=== PATIENT | female | born 1960 | race Caucasian/White ===

== ENCOUNTER 2017-05-06 19:22 | Inpatient (IN) | payer OTHER ==
[2017-05-06 19:32] VITALS: BMI 31.3
--- NOTE | 2017-05-06 19:40 | HP ---
Admission [facility] Chief Complaint: Patient admitted for rehab Allergies/Adverse Reactions: Allergies Allergy/AdvReac Type Severity Reaction Status Date / Time No Known Allergies Allergy Verified 05/06/17 19:28 History of Present Illness: 57 years old female with history of alcohol and cocaine dependence admitted for rehab. Patient reports detox at [facility] in [place] within the last month. Exam Limitations: No Limitations - Ebola screening Have you traveled outside of the country in the last 21 days: No Have you had contact with anyone from an Ebola affected area: No Have you been sick,other than usual withdrawal symptoms: No Do you have a fever: No - Review of Systems Constitutional: No Symptoms Reported EENT: reports: No Symptoms Reported Respiratory: reports: No Symptoms reported Cardiac: reports: No Symptoms Reported : reports: No Symptoms Reported Musculoskeletal: reports: No Symptoms Reported Neuro: reports: No Symptoms reported Endocrine: reports: No Symptoms Reported Hematology: reports: No Symptoms Reported Psychiatric: reports: Mood/Affect Appropiate, Orientated x3 Other Systems: Reviewed and Negative Patient History - Patient Medical History Hx Anemia: No Hx Asthma: No Hx Chronic Obstructive Pulmonary Disease (COPD): No Hx Cancer: No Hx Cardiac Disorders: No Hx Congestive Heart Failure: No Hx Hypertension: No Hx Hypercholesterolemia: No Hx Pacemaker: No HX Cerebrovascular Accident: No Hx Seizures: No Hx Dementia: No Hx Diabetes: No Hx Gastrointestinal Disorders: No Hx Liver Disease: No Hx Genitourinary Disorders: No Hx Sexually Transmitted Disorders: No Hx Renal Disease (ESRD): No Hx Thyroid Disease: No Hx Human Immunodeficiency Virus (HIV): No (Negative 02/2017) Hx Hepatitis C: Yes (Treated with Timoteo 2015) Hx Depression: Yes Hx Suicide Attempt: No Hx Bipolar Disorder: No Hx Schizophrenia: No - Patient Surgical History Past Surgical History: Yes Hx Neurologic Surgery: No Hx Cataract Extraction: No Hx Cardiac Surgery: No Hx Lung Surgery: Yes Hx Breast Surgery: No Hx Breast Biopsy: No Hx Abdominal Surgery: No Hx Appendectomy: No Hx Cholecystectomy: No Hx Genitourinary Surgery: No Hx Section: No Hx Orthopedic Surgery: No Hx Hysterectomy: No Anesthesia Reaction: No - PPD History Previous Implant?: Yes Documented Results: Negative w/o proof Implanted On Prior [facility] Admission?: No PPD to be Administered?: Yes - Reproductive History Patient is a Female of Child Bearing Age (11 -55 yrs old): Yes Last Menstrual Period: 01/15/14 (menopausal) Patient : No - Smoking Cessation Smoking history: Current some day smoker Have you smoked in the past 12 months: Yes Aproximately how many cigarettes per day: 3 Hx Chewing Tobacco Use: No Initiated information on smoking cessation: Yes 'Breaking Loose' booklet given: 05/06/17 - Substance & Tx. History Hx Alcohol Use: Yes (Beer) Hx Substance Use: Yes (Cocaine) Substance Use Type: Alcohol, Cocaine Hx Substance Use Treatment: Yes ([facility]) - Substances Abused Alcohol Route: Oral Frequency: 1-2 times per week Amount used: 2 12 oz. Age of first use: 19 Date of Last Use: 05/05/17 Cocaine Route: Smoking Frequency: Daily Amount used: 9 bags Age of first use: 25 Date of Last Use: 05/06/17 Family Disease History - Family Disease History Family History: Denies Admission Physical Exam [facility] - Vital Signs Vital Signs: Vital Signs - 24 hr 05/06/17 19:27 Temperature 98.7 F Pulse Rate 82 Respiratory 18 Rate Blood Pressure 143/88 - Physical General Appearance: Yes: No Apparent Distress HEENTM: Yes: EOMI, Normal Voice, JATINDER Respiratory: Yes: Lungs Clear, Normal Breath Sounds, No Respiratory Distress Neck: Yes: Supple Breast: Yes: Breast Exam Deferred Cardiology: Yes: Regular Rhythm, Regular Rate, S1, S2 Abdominal: Yes: Normal Bowel Sounds, Non Tender, Flat, Soft Genitourinary: Yes: Within Normal Limits Back: Yes: Normal Inspection Musculoskeletal: Yes: Within Normal Limits Extremities: Yes: Normal Inspection Neurological: Yes: Fully Oriented, Alert, Normal Response Integumentary: Yes: Warm Lymphatic: Yes: Within Normal Limits - Diagnostic (1) Uncomplicated alcohol dependence Current Visit: Yes Status: Chronic (2) Cocaine dependence, uncomplicated Current Visit: Yes Status: Chronic (3) Nicotine dependence Current Visit: Yes Status: Chronic Cleared for Admission [facility] - Detox or Rehab [facility] Level of Care: Observation Bed Claeared for Rehab Admission: Yes [facility] Breath Alcohol Content Breath Alcohol Content: 0 Urine Pregancy Test - Result Urine Test Results: Negative- NO Line Present Urine Drug Screen - Results Drug Screen Negative: No Urine Drug Screen Results: ELENI-Cocaine Inpatient Rehab Admission - Initial Determination Are CD services needed?: Yes Free of communicable disease: Yes Not in need of hospitalization: Yes - Rehab Admission Criteria Previous failed treatment: Yes Poor recovery environment: Yes Comorbidities: No Lacks judgement: No Patient is meeting Inpatient Rehab admission criteria:: Yes
[2017-05-06] MEDS ORDERED: LOPERAMIDE HCL 2 MG CAPSULE PO PRN (20:40)
[2017-05-06] MEDS ORDERED: MAGNESIUM CITRATE 300 ML BOTTLE PO PRN (20:40)
[2017-05-06] MEDS ORDERED: ACETAMINOPHEN 325 MG TABLET (FP) PO PRN (20:40)
[2017-05-06] MEDS ORDERED: MENTHOL/PHENOL 1 EACH UD MM PRN (20:40)
[2017-05-06] MEDS ORDERED: P-EPHED 60MG/TRIPROLIDI 2.5MG TABLET PO PRN (20:40)
[2017-05-06] MEDS ORDERED: MAG HYDROX/AL HYDROX/SIMETH 30 ML UNIT-DOSE CUP PO PRN (20:40)
[2017-05-06] MEDS ORDERED: MAGNESIUM HYDROX 2400MG/30ML ORAL SUSPENSION 30 ML CUP PO PRN (20:40)
[2017-05-06] MEDS ORDERED: NICOTINE POLACRILEX 2 MG GUM BC PRN (20:40)
[2017-05-06] MEDS ORDERED: guaiFENesin/D-METHORPHAN HB 10 ML UNIT-DOSE CUPS PO PRN (20:40)
[2017-05-06] MEDS ORDERED: TUBERCULIN PPD 5 TU/0.1ML VIAL ID ONE ×2 (21:58→22:55)
[2017-05-06] MEDS: THIAMINE HCL 100 MG TABLET (FP) PO SCH (22:54)
[2017-05-06 23:24] LABS: URINE APPEARANCE SLCLOUDY; URINE BILIRUBIN NEGATIVE (NEGATIVE); URINE BLOOD 2+ (NEGATIVE); URINE COLOR YELLOW; URINE GLUCOSE (UA) NEGATIVE (NEGATIVE); URINE KETONE NEGATIVE (NEGATIVE); URINE NITRITE NEGATIVE (NEGATIVE); URINE PROTEIN NEGATIVE (NEGATIVE); URINE UROBILINOGEN NEGATIVE mg/dL (0.2-1.0)
[2017-05-06 23:31] LABS: URINE MUCUS MANY; URINE RBC 1 /hpf (0-3); URINE WBC 2 /hpf (3-5)
--- NOTE | 2017-05-07 09:31 | HP ---
Psychiatrist Admission - Data Date of interview: 05/07/17 Admission source: [facility] Identifying data: This is the first admission to [address] [place] [address] for this 57 years old AA mother of 4 grown children, resides with ,supported by PA. Medical History: H/O Pneumonia with chest tube about 4 years ago. Psychiatric History: First contact with psychiatrist was about 2 years ago when she addressed depressed mood,anxiety provoked by alcohol.cocaine use,losing job.[facility],placed on lexapro and Trazodone.She stopped to see a psychiatrist and stopped medications about 1 year ago. Physical/Sexual Abuse/Trauma History: denies Vital Signs: Vital Signs - 24 hr 05/06/17 05/06/17 05/07/17 19:27 22:14 00:30 Temperature 98.7 F 98.6 F Pulse Rate 82 76 Respiratory 18 16 18 Rate Blood Pressure 143/88 125/81 05/07/17 05/07/17 03:30 07:24 Temperature 97.8 F Pulse Rate 62 Respiratory 20 18 Rate Blood Pressure 135/84 Allergies/Adverse Reactions: Allergies Allergy/AdvReac Type Severity Reaction Status Date / Time No Known Allergies Allergy Verified 05/06/17 19:28 Date of last physical exam: 05/06/17 Concur with the findings of this exam: Yes - Substance Abuse/Tx History Hx Alcohol Use: Yes (reports drinking since 19 yo,2 12 oz of beer 2-3 times a week) Hx Substance Use: Yes (crack/cocaine since 25 yo,9 bags daily) Substance Use Type: Alcohol, Cocaine Hx Substance Use Treatment: Yes (completed 28 days inpatient 2 y o,longest abstinence 8 years ) Mental Status Exam - Mental Status Exam Alert and Oriented to: Time, Place, Person Cognitive Function: Grossly Intact Patient Appearance: Well Groomed Mood: Sad Affect: Labile Patient Behavior: Cooperative Speech Pattern: Clear Voice Loudness: Normal Thought Process: Goal Oriented Thought Disorder: Not Present Hallucinations: Denies Suicidal Ideation: Denies Homicidal Ideation: Denies Insight/Judgement: Fair Sleep: Fair Appetite: Good Muscle strength/Tone: Normal Gait/Station: Normal Psychiatric Findings - Problem List ([place] 1, 2,3) (1) Nicotine dependence Current Visit: Yes Status: Chronic (2) Alcohol dependence Current Visit: Yes Status: Chronic (3) Cocaine dependence Current Visit: Yes Status: Chronic (4) Substance induced mood disorder Current Visit: Yes Status: Chronic - Initial Treatment Plan Initial Treatment Plan: Restart Lexapro 10 mg po daily.Will monitor progress.
[2017-05-07 09:50] LABS: MCH 33.7 pg (25.7-33.7); MCHC 33.7 g/dl (32.0-36.0); MEAN CELL VOLUME 99.9 fl (80-96); MEAN PLT VOLUME 10.6 fl (7.5-11.1); PLATELET COUNT 175 K/MM3 (134-434); WHITE BLOOD COUNT 7.3 K/mm3 (4.0-10.0)
--- NOTE | 2017-05-07 09:56 | EKG ---
Test Reason : Blood Pressure : / mmHG Vent. Rate : 076 BPM Atrial Rate : 076 BPM P-R Int : 160 ms QRS Dur : 086 ms QT Int : 382 ms P-R-T Axes : 049 007 063 degrees QTc Int : 429 ms NORMAL SINUS RHYTHM NORMAL ECG NO PREVIOUS ECGS AVAILABLE Confirmed by CADEN BAR MD ([id number]) on 05/07/2017 9:55:56 AM Referred By: Confirmed By:CADEN BAR MD
[2017-05-07 10:29] LABS: URINE LEUK ESTERASE Negative (NEGATIVE)
[2017-05-07 10:42] LABS: ALBUMIN 3.6 g/dl (3.4-5.0); ALK PHOS 87 U/L (45-117); ANION GAP 6 (8-16); CALCIUM 8.6 mg/dL (8.5-10.1); CO2 28 mmol/L (21-32); CREATININE 0.9 mg/dL (0.55-1.02); GLUCOSE,RANDOM 87 mg/dL (74-106); SGOT/AST 41 U/L (15-37); SGPT/ALT 59 U/L (12-78)
[2017-05-07] MEDS: NICOTINE 14 MG/24 HOURS TOPICAL PATCH TD SCH (11:16)
[2017-05-07] MEDS: PRENATAL VITAMINS W/ FOLIC ACID TABLET (FP) PO SCH (11:16)
[2017-05-07] MEDS: ESCITALOPRAM OXALATE 10 MG TABLET (FP) PO SCH (11:16)
[2017-05-07] MEDS: hydrOXYzine PAMOATE 50 MG CAPSULE (FP) PO PRN ×2 (11:17→21:54)
[2017-05-07] MEDS: IBUPROFEN 400 MG TABLET (FP) PO PRN (11:18)
[2017-05-07] MEDS ORDERED: FLU VACCINE QUAD 60 MCG/0.5 ML (MDV 17-18) IM ONE (12:00)
[2017-05-07 12:13] LABS: HIV 1 & 2 AB NEGATIVE; HIV 1 AGp24 NEGATIVE
[2017-05-07] MEDS: THIAMINE HCL 100 MG TABLET (FP) PO SCH (21:53)
[2017-05-08] MEDS: ESCITALOPRAM OXALATE 10 MG TABLET (FP) PO SCH (10:03)
[2017-05-08] MEDS: NICOTINE 14 MG/24 HOURS TOPICAL PATCH TD SCH (10:03)
[2017-05-08] MEDS: PRENATAL VITAMINS W/ FOLIC ACID TABLET (FP) PO SCH (10:04)
[2017-05-08] MEDS: hydrOXYzine PAMOATE 50 MG CAPSULE (FP) PO PRN ×2 (10:05→21:44)
[2017-05-08] MEDS: THIAMINE HCL 100 MG TABLET (FP) PO SCH (21:43)
[2017-05-09] MEDS: NICOTINE 14 MG/24 HOURS TOPICAL PATCH TD SCH (09:45)
[2017-05-09] MEDS: PRENATAL VITAMINS W/ FOLIC ACID TABLET (FP) PO SCH (09:46)
[2017-05-09] MEDS: ESCITALOPRAM OXALATE 10 MG TABLET (FP) PO SCH (09:46)
[2017-05-09] MEDS: hydrOXYzine PAMOATE 50 MG CAPSULE (FP) PO PRN ×2 (09:47→21:37)
[2017-05-09] MEDS: THIAMINE HCL 100 MG TABLET (FP) PO SCH (21:36)
[2017-05-10] MEDS: NICOTINE 14 MG/24 HOURS TOPICAL PATCH TD SCH (10:42)
[2017-05-10] MEDS: PRENATAL VITAMINS W/ FOLIC ACID TABLET (FP) PO SCH (10:43)
[2017-05-10] MEDS: ESCITALOPRAM OXALATE 10 MG TABLET (FP) PO SCH (10:43)
[2017-05-10] MEDS: hydrOXYzine PAMOATE 50 MG CAPSULE (FP) PO PRN ×2 (10:43→21:57)
[2017-05-10] MEDS: THIAMINE HCL 100 MG TABLET (FP) PO SCH (21:57)
[2017-05-11] MEDS: IBUPROFEN 400 MG TABLET (FP) PO PRN (09:42)
[2017-05-11] MEDS: ESCITALOPRAM OXALATE 10 MG TABLET (FP) PO SCH (09:43)
[2017-05-11] MEDS: PRENATAL VITAMINS W/ FOLIC ACID TABLET (FP) PO SCH (09:43)
[2017-05-11] MEDS: hydrOXYzine PAMOATE 50 MG CAPSULE (FP) PO PRN ×2 (09:43→21:11)
[2017-05-11] MEDS: NICOTINE 14 MG/24 HOURS TOPICAL PATCH TD SCH (09:44)
[2017-05-11] MEDS: THIAMINE HCL 100 MG TABLET (FP) PO SCH (21:10)
[2017-05-12] MEDS: diphenhydrAMINE HCL 50 MG CAPSULE PO PRN (01:36)
[2017-05-12] MEDS: PRENATAL VITAMINS W/ FOLIC ACID TABLET (FP) PO SCH (10:31)
[2017-05-12] MEDS: ESCITALOPRAM OXALATE 10 MG TABLET (FP) PO SCH (10:31)
[2017-05-12] MEDS: NICOTINE 14 MG/24 HOURS TOPICAL PATCH TD SCH (10:31)
[2017-05-12] MEDS: hydrOXYzine PAMOATE 50 MG CAPSULE (FP) PO PRN ×2 (10:32→21:35)
[2017-05-12] MEDS: THIAMINE HCL 100 MG TABLET (FP) PO SCH (21:35)
[2017-05-12] MEDS: traZODone HCL 100 MG TABLET (FP) PO SCH (21:35)
[2017-05-13] MEDS: PRENATAL VITAMINS W/ FOLIC ACID TABLET (FP) PO SCH (10:29)
[2017-05-13] MEDS: ESCITALOPRAM OXALATE 10 MG TABLET (FP) PO SCH (10:29)
[2017-05-13] MEDS: NICOTINE 14 MG/24 HOURS TOPICAL PATCH TD SCH (10:29)
[2017-05-13] MEDS: hydrOXYzine PAMOATE 50 MG CAPSULE (FP) PO PRN (10:30)
[2017-05-13] MEDS: traZODone HCL 100 MG TABLET (FP) PO SCH (21:43)
[2017-05-13] MEDS: THIAMINE HCL 100 MG TABLET (FP) PO SCH (21:43)
[2017-05-13] MEDS: diphenhydrAMINE HCL 50 MG CAPSULE PO PRN (21:45)
[2017-05-14] MEDS: ESCITALOPRAM OXALATE 10 MG TABLET (FP) PO SCH (10:40)
[2017-05-14] MEDS: NICOTINE 14 MG/24 HOURS TOPICAL PATCH TD SCH (10:40)
[2017-05-14] MEDS: PRENATAL VITAMINS W/ FOLIC ACID TABLET (FP) PO SCH (10:40)
[2017-05-14] MEDS: hydrOXYzine PAMOATE 50 MG CAPSULE (FP) PO PRN (10:41)
[2017-05-14] MEDS: diphenhydrAMINE HCL 50 MG CAPSULE PO PRN (21:36)
[2017-05-14] MEDS: THIAMINE HCL 100 MG TABLET (FP) PO SCH (21:37)
[2017-05-14] MEDS: traZODone HCL 50 MG TABLET (FP) PO SCH (21:37)
[2017-05-15] MEDS: IBUPROFEN 400 MG TABLET (FP) PO PRN (09:57)
[2017-05-15] MEDS: NICOTINE 14 MG/24 HOURS TOPICAL PATCH TD SCH (09:57)
[2017-05-15] MEDS: ESCITALOPRAM OXALATE 10 MG TABLET (FP) PO SCH (09:57)
[2017-05-15] MEDS: PRENATAL VITAMINS W/ FOLIC ACID TABLET (FP) PO SCH (09:57)
[2017-05-15] MEDS: hydrOXYzine PAMOATE 50 MG CAPSULE (FP) PO PRN (09:57)
[2017-05-15] MEDS: diphenhydrAMINE HCL 50 MG CAPSULE PO PRN (21:40)
[2017-05-15] MEDS: traZODone HCL 50 MG TABLET (FP) PO SCH (21:40)
[2017-05-15] MEDS: THIAMINE HCL 100 MG TABLET (FP) PO SCH (21:40)
[2017-05-16] MEDS: PRENATAL VITAMINS W/ FOLIC ACID TABLET (FP) PO SCH (10:10)
[2017-05-16] MEDS: NICOTINE 14 MG/24 HOURS TOPICAL PATCH TD SCH (10:10)
[2017-05-16] MEDS: ESCITALOPRAM OXALATE 10 MG TABLET (FP) PO SCH (10:10)
[2017-05-16] MEDS: hydrOXYzine PAMOATE 50 MG CAPSULE (FP) PO PRN (10:11)
[2017-05-16] MEDS: traZODone HCL 50 MG TABLET (FP) PO SCH (21:43)
[2017-05-16] MEDS: diphenhydrAMINE HCL 50 MG CAPSULE PO PRN (21:43)
[2017-05-16] MEDS: THIAMINE HCL 100 MG TABLET (FP) PO SCH (21:43)
[2017-05-17] MEDS: PRENATAL VITAMINS W/ FOLIC ACID TABLET (FP) PO SCH (10:20)
[2017-05-17] MEDS: ESCITALOPRAM OXALATE 10 MG TABLET (FP) PO SCH (10:20)
[2017-05-17] MEDS: hydrOXYzine PAMOATE 50 MG CAPSULE (FP) PO PRN (10:20)
[2017-05-17] MEDS: NICOTINE 14 MG/24 HOURS TOPICAL PATCH TD SCH (10:20)
[2017-05-17] MEDS ORDERED: COLLOIDAL OATMEAL 1 BAR EACH TP PRN (12:22)
[2017-05-17] MEDS: ACAMPROSATE CALCIUM 333 MG TABLET.DR PO SCH ×2 (18:58→21:34)
[2017-05-17] MEDS: traZODone HCL 50 MG TABLET (FP) PO SCH (21:34)
[2017-05-17] MEDS: THIAMINE HCL 100 MG TABLET (FP) PO SCH (21:34)
[2017-05-17] MEDS: diphenhydrAMINE HCL 50 MG CAPSULE PO PRN (21:34)
[2017-05-18] MEDS: hydrOXYzine PAMOATE 50 MG CAPSULE (FP) PO PRN ×2 (06:23→13:20)
[2017-05-18] MEDS: ACAMPROSATE CALCIUM 333 MG TABLET.DR PO SCH ×3 (06:23→21:38)
[2017-05-18] MEDS ORDERED: PT OWN MED DRAWER 7, Y5N ONE (08:54)
[2017-05-18] MEDS: ESCITALOPRAM OXALATE 10 MG TABLET (FP) PO SCH (10:42)
[2017-05-18] MEDS: PRENATAL VITAMINS W/ FOLIC ACID TABLET (FP) PO SCH (10:42)
[2017-05-18] MEDS: NICOTINE 14 MG/24 HOURS TOPICAL PATCH TD SCH (10:42)
[2017-05-18] MEDS: traZODone HCL 50 MG TABLET (FP) PO SCH (21:37)
[2017-05-18] MEDS: diphenhydrAMINE HCL 50 MG CAPSULE PO PRN (21:38)
[2017-05-18] MEDS: THIAMINE HCL 100 MG TABLET (FP) PO SCH (21:38)
[2017-05-19] MEDS: ACAMPROSATE CALCIUM 333 MG TABLET.DR PO SCH ×3 (06:19→21:39)
[2017-05-19] MEDS: hydrOXYzine PAMOATE 50 MG CAPSULE (FP) PO PRN ×2 (06:20→13:15)
[2017-05-19] MEDS: ESCITALOPRAM OXALATE 10 MG TABLET (FP) PO SCH (10:27)
[2017-05-19] MEDS: PRENATAL VITAMINS W/ FOLIC ACID TABLET (FP) PO SCH (10:27)
[2017-05-19] MEDS: IBUPROFEN 400 MG TABLET (FP) PO PRN (10:31)
[2017-05-19] MEDS: NICOTINE 14 MG/24 HOURS TOPICAL PATCH TD SCH (10:31)
[2017-05-19] MEDS: diphenhydrAMINE HCL 50 MG CAPSULE PO PRN (21:39)
[2017-05-19] MEDS: THIAMINE HCL 100 MG TABLET (FP) PO SCH (21:40)
[2017-05-19] MEDS: traZODone HCL 50 MG TABLET (FP) PO SCH (21:40)
[2017-05-20] MEDS: hydrOXYzine PAMOATE 50 MG CAPSULE (FP) PO PRN ×2 (06:12→13:42)
[2017-05-20] MEDS: ACAMPROSATE CALCIUM 333 MG TABLET.DR PO SCH ×3 (06:12→21:42)
[2017-05-20] MEDS: NICOTINE 14 MG/24 HOURS TOPICAL PATCH TD SCH (10:27)
[2017-05-20] MEDS: ESCITALOPRAM OXALATE 10 MG TABLET (FP) PO SCH (10:27)
[2017-05-20] MEDS: PRENATAL VITAMINS W/ FOLIC ACID TABLET (FP) PO SCH (10:27)
[2017-05-20] MEDS: diphenhydrAMINE HCL 50 MG CAPSULE PO PRN (21:42)
[2017-05-20] MEDS: traZODone HCL 50 MG TABLET (FP) PO SCH (21:42)
[2017-05-20] MEDS: THIAMINE HCL 100 MG TABLET (FP) PO SCH (21:42)
[2017-05-21] MEDS: hydrOXYzine PAMOATE 50 MG CAPSULE (FP) PO PRN ×2 (06:24→13:20)
[2017-05-21] MEDS: ACAMPROSATE CALCIUM 333 MG TABLET.DR PO SCH ×3 (06:24→21:26)
[2017-05-21] MEDS: NICOTINE 14 MG/24 HOURS TOPICAL PATCH TD SCH (10:21)
[2017-05-21] MEDS: ESCITALOPRAM OXALATE 10 MG TABLET (FP) PO SCH (10:21)
[2017-05-21] MEDS: PRENATAL VITAMINS W/ FOLIC ACID TABLET (FP) PO SCH (10:21)
[2017-05-21] MEDS: THIAMINE HCL 100 MG TABLET (FP) PO SCH (21:27)
[2017-05-21] MEDS: traZODone HCL 50 MG TABLET (FP) PO SCH (21:27)
[2017-05-21] MEDS: diphenhydrAMINE HCL 50 MG CAPSULE PO PRN (21:28)
[2017-05-22] MEDS: ACAMPROSATE CALCIUM 333 MG TABLET.DR PO SCH ×3 (06:20→21:38)
[2017-05-22] MEDS: hydrOXYzine PAMOATE 50 MG CAPSULE (FP) PO PRN ×2 (06:20→13:09)
[2017-05-22] MEDS: ESCITALOPRAM OXALATE 10 MG TABLET (FP) PO SCH (09:04)
[2017-05-22] MEDS: PRENATAL VITAMINS W/ FOLIC ACID TABLET (FP) PO SCH (09:04)
[2017-05-22] MEDS: NICOTINE 14 MG/24 HOURS TOPICAL PATCH TD SCH (09:04)
[2017-05-22] MEDS: traZODone HCL 50 MG TABLET (FP) PO SCH (21:38)
[2017-05-22] MEDS: THIAMINE HCL 100 MG TABLET (FP) PO SCH (21:38)
[2017-05-22] MEDS: diphenhydrAMINE HCL 50 MG CAPSULE PO PRN (21:39)
[2017-05-23] MEDS: ACAMPROSATE CALCIUM 333 MG TABLET.DR PO SCH ×3 (06:30→21:54)
[2017-05-23] MEDS: hydrOXYzine PAMOATE 50 MG CAPSULE (FP) PO PRN ×2 (06:31→13:07)
[2017-05-23] MEDS: PRENATAL VITAMINS W/ FOLIC ACID TABLET (FP) PO SCH (09:05)
[2017-05-23] MEDS: ESCITALOPRAM OXALATE 10 MG TABLET (FP) PO SCH (09:05)
[2017-05-23] MEDS: NICOTINE 14 MG/24 HOURS TOPICAL PATCH TD SCH (09:05)
[2017-05-23] MEDS: THIAMINE HCL 100 MG TABLET (FP) PO SCH (21:53)
[2017-05-23] MEDS: diphenhydrAMINE HCL 50 MG CAPSULE PO PRN (21:53)
[2017-05-23] MEDS: traZODone HCL 50 MG TABLET (FP) PO SCH (21:54)
[2017-05-24] MEDS: hydrOXYzine PAMOATE 50 MG CAPSULE (FP) PO PRN ×2 (06:16→13:15)
[2017-05-24] MEDS: ACAMPROSATE CALCIUM 333 MG TABLET.DR PO SCH ×3 (06:16→21:28)
[2017-05-24] MEDS: ESCITALOPRAM OXALATE 10 MG TABLET (FP) PO SCH (10:11)
[2017-05-24] MEDS: NICOTINE 14 MG/24 HOURS TOPICAL PATCH TD SCH (10:11)
[2017-05-24] MEDS: PRENATAL VITAMINS W/ FOLIC ACID TABLET (FP) PO SCH (10:11)
[2017-05-24] MEDS: diphenhydrAMINE HCL 50 MG CAPSULE PO PRN (21:28)
[2017-05-24] MEDS: traZODone HCL 50 MG TABLET (FP) PO SCH (21:28)
[2017-05-24] MEDS: THIAMINE HCL 100 MG TABLET (FP) PO SCH (21:28)
[2017-05-25] MEDS: ACAMPROSATE CALCIUM 333 MG TABLET.DR PO SCH ×3 (06:12→21:39)
[2017-05-25] MEDS: hydrOXYzine PAMOATE 50 MG CAPSULE (FP) PO PRN ×2 (06:13→13:32)
[2017-05-25] MEDS: ESCITALOPRAM OXALATE 10 MG TABLET (FP) PO SCH (09:53)
[2017-05-25] MEDS: PRENATAL VITAMINS W/ FOLIC ACID TABLET (FP) PO SCH (09:53)
[2017-05-25] MEDS: NICOTINE 14 MG/24 HOURS TOPICAL PATCH TD SCH (09:54)
[2017-05-25] MEDS: THIAMINE HCL 100 MG TABLET (FP) PO SCH (21:39)
[2017-05-25] MEDS: traZODone HCL 50 MG TABLET (FP) PO SCH (21:39)
[2017-05-25] MEDS: diphenhydrAMINE HCL 50 MG CAPSULE PO PRN (21:40)
[2017-05-26] MEDS: hydrOXYzine PAMOATE 50 MG CAPSULE (FP) PO PRN ×2 (06:15→13:03)
[2017-05-26] MEDS: ACAMPROSATE CALCIUM 333 MG TABLET.DR PO SCH ×3 (07:38→21:42)
[2017-05-26] MEDS: PRENATAL VITAMINS W/ FOLIC ACID TABLET (FP) PO SCH (10:40)
[2017-05-26] MEDS: NICOTINE 14 MG/24 HOURS TOPICAL PATCH TD SCH (10:41)
[2017-05-26] MEDS: ESCITALOPRAM OXALATE 10 MG TABLET (FP) PO SCH (10:41)
--- NOTE | 2017-05-26 14:51 | PN ---
Psychiatric Progress Note Vital Signs: Vital Signs Period Temp Pulse Resp BP Sys/Chow Pulse Ox Last 24 Hr 97.2 F 52 18-18 118/78 Date of Session: 05/26/17 Chief Complaint:: Discharge visit HPI: Patient addressed Alcohol and Cocaine dependence comorbid with Substance induced mood disorder. ROS: unremarkable Current Medications: Active Medications Generic Name Dose Route Start Last Admin Trade Name Freq PRN Reason Stop Dose Admin Acamprosate 666 mg 05/17/17 16:00 05/26/17 13:03 Campral - PO 666 mg TID LANIE Administration Acetaminophen 650 mg 05/06/17 20:40 05/19/17 13:15 Tylenol - PO 650 mg Q4H PRN Administration PAIN Al Hydroxide/Mg Hydroxide 30 ml 05/06/17 20:40 Mylanta Oral Suspension - PO Q6H PRN DYSPEPSIA Colloidal Oatmeal 1 applic 05/17/17 12:22 05/17/17 15:31 Aveeno Soap - TP 1 bar DAILY PRN Administration HYGEINE Diphenhydramine HCl 50 mg 05/06/17 20:40 05/25/17 21:40 Benadryl - PO 50 mg HSMR1 PRN Administration INSOMNIA Escitalopram Oxalate 10 mg 05/07/17 11:15 05/26/17 10:41 Lexapro - PO 10 mg DAILY LANIE Administration Eucalyptus/Menthol/Phenol/Sorbitol 1 each 05/06/17 20:40 05/08/17 21:44 Cepastat Lozenge - MM 1 each Q4H PRN Administration SORE THROAT Guaifenesin 10 ml 05/06/17 20:40 Robitussin Dm - PO Q6H PRN COUGH Hydroxyzine Pamoate 50 mg 05/06/17 20:40 05/26/17 13:03 Vistaril - PO 50 mg Q4H PRN Administration AGITATION Ibuprofen 400 mg 05/06/17 20:40 05/19/17 10:31 Motrin - PO 400 mg Q6H PRN Administration SEVERE PAIN Loperamide HCl 4 mg 05/06/17 20:40 Imodium - PO Q6H PRN DIARRHEA Magnesium Citrate 300 ml 05/06/17 20:40 05/20/17 20:23 Citroma - PO 300 ml Q48H PRN Administration CONSTIPATION Magnesium Hydroxide 30 ml 05/06/17 20:40 Milk Of Magnesia - PO DAILY PRN CONSTIPATION Nicotine 14 mg 05/07/17 10:00 05/26/17 10:41 Nicoderm Patch - TD 14 mg DAILY LANIE Administration Nicotine Polacrilex 2 mg 05/06/17 20:40 Nicorette Gum - BC Q2H PRN NICOTINE REPLACEMENT RX Multivit/Folic Acid/Iron 1 tab 05/07/17 10:00 05/26/17 10:40 Vitamins ([facility]) - PO 1 tab DAILY LANIE Administration Pseudoephedrine/Triprolidine 1 combo 05/06/17 20:40 Actifed - PO TID PRN NASAL CONGESTION Thiamine HCl 100 mg 05/06/17 22:00 05/25/17 21:39 Vitamin B1 - PO 100 mg HS LANIE Administration Trazodone HCl 150 mg 05/14/17 22:00 05/25/17 21:39 Desyrel - PO 150 mg HS LANIE Administration Current Side Effect: No Lab tests ordered: No Lab tests reviewed: Yes Provider note:: Patient will complete this program tomorrow.She has met her treatment goals and will continue to address her issues on outpatient basis at [facility] in [facility].Patient reports finding that Lexapro 10 mg po daily, Campral 333 mg po 2 tab tid,Trazodone 150 mg po hs and Vistaril prn help to cope with anxiety,mood swings,craving,insomnia.Scripts for 30 days provided. patient identifies areas of difficulties,behaviors which contribute to relapse and support,coping skills to utilize to maintain recovery. patient is stable for discharge tomorrow 05/27/17. Total face to face time:: 30 Mental Status Exam - Mental Status Exam Alert and Oriented to: Time, Place, Person Cognitive Function: Grossly Intact Patient Appearance: Well Groomed Mood: Euthymic Affect: Mood Congruent Patient Behavior: Cooperative Speech Pattern: Clear Voice Loudness: Normal Thought Process: Goal Oriented Thought Disorder: Not Present Hallucinations: Denies Suicidal Ideation: Denies Homicidal Ideation: Denies Insight/Judgement: Fair Sleep: Fair Appetite: Good Muscle strength/Tone: Normal Gait/Station: Normal Psychiatric Treatment Plan - Problem List (1) Nicotine dependence Current Visit: Yes (2) Alcohol dependence Current Visit: Yes (3) Cocaine dependence Current Visit: Yes (4) Substance induced mood disorder Current Visit: Yes
[2017-05-26] MEDS: THIAMINE HCL 100 MG TABLET (FP) PO SCH (21:41)
[2017-05-26] MEDS: traZODone HCL 50 MG TABLET (FP) PO SCH (21:41)
[2017-05-26] MEDS: diphenhydrAMINE HCL 50 MG CAPSULE PO PRN (21:42)
[2017-05-27] MEDS: ACAMPROSATE CALCIUM 333 MG TABLET.DR PO SCH (06:16)
[2017-05-27] MEDS: hydrOXYzine PAMOATE 50 MG CAPSULE (FP) PO PRN ×2 (06:16→10:00)
[2017-05-27 07:13] VITALS: BP 118/75; PULSE 71; TEMP 97.7
[2017-05-27] MEDS: IBUPROFEN 400 MG TABLET (FP) PO PRN (08:26)
[2017-05-27] MEDS: ESCITALOPRAM OXALATE 10 MG TABLET (FP) PO SCH (09:58)
[2017-05-27] MEDS: PRENATAL VITAMINS W/ FOLIC ACID TABLET (FP) PO SCH (09:58)
[2017-05-27] MEDS: NICOTINE 14 MG/24 HOURS TOPICAL PATCH TD SCH (09:59)
== END 2017-05-27 10:30 | disposition home or self-care (01) | DRG 772 ==
LOC: YASAS 19:22 → Y3E 20:22
PROVIDERS: ADMIT Psychiatry & Neurology Psychiatry; ATTEND Psychiatry & Neurology Psychiatry
PROC: HZ42ZZZ Group Counseling for Substance Abuse Treatment, Cognitive-Behavioral (ICD-10-PCS; principal; 2017-05-06)
DX: F10.20 Alcohol dependence, uncomplicated (principal); F14.20 Cocaine dependence, uncomplicated; F17.210 Nicotine dependence, cigarettes, uncomplicated; F19.24 Other psychoactive substance dependence with psychoactive substance-induced mood disorder
CPT/HCPCS: 36415; 80053; 81003; 81015; 85027; 86593; 87389; 90688; 93005; 93010; G0008

== ENCOUNTER 2019-07-10 15:40 | Inpatient (IN) | payer OTHER ==
[2019-07-10 17:32] VITALS: BMI 32.5
--- NOTE | 2019-07-10 18:18 | HP ---
CIWA Score Nausea/Vomitin-No Nausea/No Vomiting Muscle Tremors: None Anxiety: 4-Mod. Anxious/Guarded Agitation: 1-Slight > Activity Paroxysmal Sweats: No Perspiration Orientation: 0-Oriented Tacttile Disturbances: 0-None Auditory Disturbances: 0-None Visual Disturbances: 0-None Headache: 0-None Present CIWA-Ar Total Score: 5 - Admission Criteria OASAS Guidelines: Admission for Medically Managed Detox: Requires at least one of the followin. CIWA greater than 12 2. Seizures within the past 24 hours 3. Delirium tremens within the past 24 hours 4. Hallucinations within the past 24 hours 5. Acute intervention needed for co occurring medical disorder 6. Acute intervention needed for co occurring psychiatric disorder 7. Severe withdrawal that cannot be handled at a lower level of care (continued vomiting, continued diarrhea, abnormal vital signs) requiring intravenous medication and/or fluids 8. Admitting History and Physical - Past Medical History ...LMP: 01/15/14 (menopausal) ...: No - Smoking History Smoking history: Current some day smoker Have you smoked in the past 12 months: Yes Aproximately how many cigarettes per day: 3 - Alcohol/Substance Use Hx Alcohol Use: Yes (reports drinking since 19 yo,2 12 oz of beer 2-3 times a week) Admission [facility] Chief Complaint: I need to be sober so I can start chemotherapy. Allergies/Adverse Reactions: Allergies Allergy/AdvReac Type Severity Reaction Status Date / Time No Known Allergies Allergy Verified 07/10/19 17:19 History of Present Illness: 59 yo presents w/ hx marijuana and cocaine use disorder seeking rehab. [facility] needs to get sober to be able to start chemo. Patient was seen in [facility] because was dizzy and had not taken medications for a few days. [facility] nothing was done - only received Tylenol. Meds reconciled via printout from [facility] dated 07/10/19. Last detox/rehab @ [facility] in 2017. WILL: 0.0 UTox: THC/ELENI Denies hx seizures, blackouts, overdoses. Marijuana use began is September 2018 - [facility] takes it for appetite. Cocaine began at ache 17 - smokes. Currently uses $200/day. Las used yesterday. Alcohol use since 19. States only drinks when uses crack. Drinks 10 beers /day when uses crack. States last alcohol intake was 3 days ago. Denies hx shakes or getting sick when stops alcohol use. PMHx: Cancer of the ovaries; blood clots - on Eliquis; Neuropathy feet (on gabapentin); constipation (on colace); Acid reflux: Patient states has RLQ abd pain and was taking percocets. States not taking because wants to get into rehab. States "pain medications weren't working anyway " MHHx: Insomnia; Depression; Denies thoughts of harming self or others. SHx: Homeless. unemployed. Denies legal issues. Patient Name: Lexy Reynolds Date: 1960 Address: [address] [place] [address] Sex: Female Rx Written Rx Dispensed Drug Quantity Days Supply Prescriber Name 07/06/2019 07/07/2019 oxycodone hcl 10 mg tablet 180 30 Elis Neri 07/01/2019 07/01/2019 oxycodone-acetaminophen 10-325 mg tab 30 5 Alan Ocampo MD 06/25/2019 06/26/2019 oxycodone-acetaminophen 10-325 mg tab 16 4 Addy Yang MD 06/05/2019 06/05/2019 oxycodone-acetaminophen 10-325 mg tab 30 5 Lita Arana 05/05/2019 05/05/2019 oxycodone-acetaminophen 10-325 mg tab 84 14 Todd Gillis 03/31/2019 04/03/2019 oxycodone-acetaminophen 10-325 mg tab 56 14 Eveline Moulton MD 03/01/2019 03/01/2019 oxycodone-acetaminophen 10-325 mg tab 120 30 Stephon Cornejo 02/20/2019 02/20/2019 oxycodone-acetaminophen 10-325 mg tab 30 10 [facility] 02/14/2019 02/18/2019 oxycodone hcl 5 mg tablet 24 4 Gualberto Hopkins MD 01/30/2019 01/31/2019 oxycodone hcl 10 mg tablet 20 5 Williams Anaya) 01/26/2019 01/27/2019 oxycodone-acetaminophen 10-325 mg tab 12 3 Rashi Driscoll MD 01/25/2019 01/25/2019 oxycodone hcl 5 mg tablet 40 10 Tracy Mathewvanessa RICHTER 01/22/2019 01/23/2019 oxycodone-acetaminophen 10-325 mg tab 12 3 Mg Giang MD 01/18/2019 01/18/2019 hydrocodone-acetaminophen 5-325 mg tablet 9 3 Tiffanie Gomez 12/14/2018 12/14/2018 oxycodone hcl 5 mg tablet 42 7 Eveline Moulton MD Patient Name: Lexy Reynolds Date: 1960 Address: [address] [facility] [address] [place] [address] Sex: Female Rx Written Rx Dispensed Drug Quantity Days Supply Prescriber Name 04/11/2019 04/11/2019 oxycodone-acetaminophen 10-325 mg tab 56 14 [facility] 02/15/2019 02/15/2019 oxycodone hcl 5 mg tablet 18 3 Tiffanie Gomez Patient Name: Lexy Reynolds Date: 1960 Address: [address] [place] [address] Sex: Female Rx Written Rx Dispensed Drug Quantity Days Supply Prescriber Name 12/23/2018 12/26/2018 oxycodone hcl 10 mg tablet 21 7 Hurt, Sharon A 11/08/2018 11/14/2018 oxycodone-acetaminophen 10-325 mg tab 90 30 Hurt, Sharon A 10/17/2018 10/17/2018 oxycodone-acetaminophen 10-325 mg tab 90 30 Hurt, Sharon A 09/16/2018 09/20/2018 oxycodone-acetaminophen 10-325 mg tab 90 30 Rudy Dong MD 08/19/2018 08/22/2018 oxycodone-acetaminophen 10-325 mg tab 90 30 Hurt, Sharon A 07/25/2018 07/25/2018 oxycodone-acetaminophen 10-325 mg tab 90 30 Hurt, Sharon A Patient Name: Lexy Reynolds Date: 1960 Address: [address] [place] [address] Sex: Female Rx Written Rx Dispensed Drug Quantity Days Supply Prescriber Name 12/07/2018 12/08/2018 oxycodone hcl 5 mg tablet 42 7 Eveline Moulton MD Exam Limitations: No Limitations - Ebola screening Have you traveled outside of the country in the last 21 days: No Have you had contact with anyone from an Ebola affected area: No Have you been sick,other than usual withdrawal symptoms: Yes (I HAVE CANCER) Do you have a fever: No - Review of Systems Constitutional: Changes in sleep (Difficulty falling and staying asleep), Weight Stable EENT: reports: Blurred Vision, Ear Pain ((L) ear ache x a few weeks) Respiratory: reports: No Symptoms reported Cardiac: reports: No Symptoms Reported GI: reports: Constipated (Last BM today - brownish), Indigestion (Acid reflux), Other (Lower (R) abd dull/achy pain. Pain is a "10". States nothing makes it better or worse.) : reports: Burning (Bursning at end of urinary flow x 3-4 days. Denies blood w / urination,) Musculoskeletal: reports: Back Pain (Lower back dull/heavy pain. Pain now is a "10". Walking makes it worse. Not much makes it better.), Joint Pain (Elbow pain. Denies knee pain.) Integumentary: reports: No Symptoms Reported Neuro: reports: No Symptoms reported Endocrine: reports: Increased Thirst Hematology: reports: Blood Clots (in (R) lung x 3 months on Eliquis.) Psychiatric: reports: Orientated x3, Agitated, Anxious, Depressed (Denies thoughts of harming self or others.), other (Answers questions in short, terse responses; sucking teeth.) Patient History - Patient Medical History Hx Anemia: No Hx Asthma: No Hx Chronic Obstructive Pulmonary Disease (COPD): No Hx Cancer: No Hx Cardiac Disorders: No Hx Congestive Heart Failure: No Hx Hypertension: No Hx Hypercholesterolemia: No Hx Pacemaker: No HX Cerebrovascular Accident: No Hx Seizures: No Hx Dementia: No Hx Diabetes: No Hx Gastrointestinal Disorders: No Hx Liver Disease: No Hx Genitourinary Disorders: No Hx Sexually Transmitted Disorders: Yes (SYPHYLLIS) Hx Renal Disease (ESRD): No Hx Thyroid Disease: No Hx Human Immunodeficiency Virus (HIV): No (Negative 02/2017) Hx Hepatitis C: Yes (Treated with Harvoni 2015) Hx Depression: Yes Hx Suicide Attempt: No Hx Bipolar Disorder: No Hx Schizophrenia: No - Patient Surgical History Past Surgical History: Yes Hx Neurologic Surgery: No Hx Cataract Extraction: No Hx Cardiac Surgery: No Hx Lung Surgery: Yes Hx Breast Surgery: No Hx Breast Biopsy: No Hx Abdominal Surgery: No Hx Appendectomy: No Hx Cholecystectomy: No Hx Genitourinary Surgery: No Hx Section: No Hx Orthopedic Surgery: No Hx Hysterectomy: No Anesthesia Reaction: No - PPD History Previous Implant?: Yes Documented Results: Negative w/o proof Date: 05/08/17 - Reproductive History Last Menstrual Period: 01/15/14 (menopausal) Patient : No - Smoking Cessation Smoking history: Current every day smoker Have you smoked in the past 12 months: Yes Aproximately how many cigarettes per day: 10 Hx Chewing Tobacco Use: No Initiated information on smoking cessation: Yes 'Breaking Loose' booklet given: 07/10/19 - Substance & Tx. History Hx Alcohol Use: Yes Hx Substance Use: Yes Substance Use Type: Alcohol, Cocaine, Marijuana Hx Substance Use Treatment: Yes (detox, rehab) - Substances abused Cocaine Substance route: Smoking Frequency: Daily Amount used: $200 WORTH Age of first use: 17 Date of last use: 07/09/19 Admission Physical Exam [facility] - Vital Signs Vital Signs: Vital Signs - 24 hr 07/10/19 17:28 Temperature 97.4 F L Pulse Rate 94 H Respiratory 18 Rate Blood Pressure 97/62 - Physical General Appearance: Yes: Nourished, Obese, Irritable, Anxious HEENTM: Yes: EOMI, Hearing grossly Normal, Normocephalic, Normal Voice, JATINDER ( Pupils = 3 mm), Pharynx Normal Respiratory: Yes: Lungs Clear (Pulse Ox = 97 %), Normal Breath Sounds, No Respiratory Distress Neck: Yes: No masses,lesions,Nodules, Supple Breast: Yes: Breast Exam Deferred Cardiology: Yes: Regular Rhythm, Regular Rate, S1, S2 Abdominal: Yes: Normal Bowel Sounds, Non Tender (upon palpation), Soft Genitourinary: Yes: Burning Back: Yes: Normal Inspection Musculoskeletal: Yes: full range of Motion, Gait Steady Extremities: Yes: Normal Capillary Refill (Peripheral pulses +; No edema.), Calf Tenderness (Bilateral calf tenderness. No increased warmth/erythema. 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, Fully Oriented, Alert, Motor Strength 5/5 Integumentary: Yes: Normal Color, Dry, Warm Lymphatic: Yes: Within Normal Limits - Diagnostic (1) Alcohol use disorder Current Visit: Yes Status: Chronic (2) Hx of urinary tract infection Current Visit: Yes Status: Acute (3) Cannabis abuse Current Visit: Yes Status: Chronic (4) GERD (gastroesophageal reflux disease) Current Visit: Yes Status: Chronic Qualifiers: Esophagitis presence: without esophagitis Qualified Code(s): K21.9 - Gastro -esophageal reflux disease without esophagitis (5) History of pulmonary embolism Current Visit: Yes Status: Chronic Comment: on Eliquis (6) Cocaine dependence, uncomplicated Current Visit: Yes Status: Chronic (7) Nicotine dependence Current Visit: Yes Status: Chronic Qualifiers: Nicotine product type: cigarettes Substance use status: uncomplicated Qualified Code(s): F17.210 - Nicotine dependence, cigarettes, uncomplicated (8) History of ovarian cancer Current Visit: No Status: Chronic (9) Constipation Current Visit: Yes Status: Chronic Qualifiers: Constipation type: unspecified constipation type Qualified Code(s): K59.00 - Constipation, unspecified (10) History of neuropathy Current Visit: Yes Status: Chronic (11) Obesity (BMI 30.0-34.9) Current Visit: Yes Status: Chronic Cleared for Admission [facility] - Detox or Rehab Claeared for Rehab Admission: Yes Breathalyzer - Breathalyzer Breathalyzer: 0 Urine Drug Screen - Test Device Lot number: [id number] Expiration date: 02/15/21 - Control Is test valid?: Yes - Results Drug screen NEGATIVE: No Urine drug screen results: THC-Marijuana, ELENI-Cocaine Inpatient Rehab Admission - Rehab Decision to Admit Inpatient rehab admission?: Yes - Initial Determination Are CD services needed?: Yes Free of communicable disease: Yes Not in need of hospitalization: Yes - Rehab Admission Criteria Previous failed treatment: Yes Poor recovery environment: Yes Comorbidities: Yes Lacks judgement: No Patient is meeting Inpatient Rehab admission criteria:: Yes
[2019-07-10] MEDS ORDERED: guaiFENesin 200 MG/10 ML 10 ML UNIT-DOSE CUPS PO PRN (19:11)
[2019-07-10] MEDS ORDERED: MAG HYDROX/AL HYDROX/SIMETH 30 ML UNIT-DOSE CUP PO PRN (19:11)
[2019-07-10] MEDS ORDERED: MAGNESIUM CITRATE 300 ML BOTTLE PO PRN (19:11)
[2019-07-10] MEDS ORDERED: P-EPHED 60MG/TRIPROLIDI 2.5MG TABLET PO PRN (19:11)
[2019-07-10] MEDS ORDERED: NICOTINE POLACRILEX 2 MG GUM BUC PRN (19:11)
[2019-07-10] MEDS ORDERED: LOPERAMIDE HCL 2 MG CAPSULE PO PRN (19:11)
[2019-07-10] MEDS ORDERED: MAGNESIUM HYDROX 2400MG/30ML ORAL SUSPENSION 30 ML CUP PO PRN (19:11)
[2019-07-10] MEDS ORDERED: TUBERCULIN PPD 5 TU/0.1ML VIAL ID ONE ×2 (20:47→20:48)
[2019-07-10] MEDS: THIAMINE HCL 100 MG TABLET (FP) PO SCH (21:27)
[2019-07-10] MEDS: PANTOPRAZOLE 40 MG TABLET (FP) PO SCH (21:29)
[2019-07-10] MEDS: MELATONIN 5 MG TABLETS PO PRN (21:29)
[2019-07-10] MEDS: DOCUSATE SODIUM 100 MG CAPSULE (FP) PO SCH (21:29)
[2019-07-10] MEDS: GABAPENTIN 300 MG CAPSULE (FP) PO SCH (21:29)
[2019-07-10] MEDS: APIXABAN 5 MG TABLET PO SCH (21:29)
[2019-07-10] MEDS: NITROFURANTOIN MACROCRYSTAL 50 MG CAPSULE (FP) PO SCH (23:40)
[2019-07-11] MEDS: DOCUSATE SODIUM 100 MG CAPSULE (FP) PO SCH ×3 (06:02→21:09)
[2019-07-11] MEDS: NITROFURANTOIN MACROCRYSTAL 50 MG CAPSULE (FP) PO SCH ×3 (06:02→17:31)
[2019-07-11] MEDS: GABAPENTIN 300 MG CAPSULE (FP) PO SCH ×3 (06:02→21:09)
[2019-07-11] MEDS: ACETAMINOPHEN 325 MG TABLET (FP) PO PRN ×2 (06:03→11:57)
[2019-07-11] MEDS: PANTOPRAZOLE 40 MG TABLET (FP) PO SCH ×2 (10:00→21:09)
[2019-07-11] MEDS: APIXABAN 5 MG TABLET PO SCH ×2 (10:00→21:09)
[2019-07-11] MEDS: PRENATAL VITAMINS W/ FOLIC ACID TABLET (FP) PO SCH (10:00)
[2019-07-11] MEDS: NICOTINE 21 MG/24 HOURS TOPICAL PATCH TD SCH (10:00)
[2019-07-11] MEDS: hydrOXYzine PAMOATE 50 MG CAPSULE (FP) PO PRN (10:01)
--- NOTE | 2019-07-11 10:17 | EKG ---
Test Reason : Blood Pressure : / mmHG Vent. Rate : 077 BPM Atrial Rate : 077 BPM P-R Int : 152 ms QRS Dur : 076 ms QT Int : 412 ms P-R-T Axes : 070 001 050 degrees QTc Int : 466 ms NORMAL SINUS RHYTHM NORMAL ECG WHEN COMPARED WITH ECG OF 06-MAY-2017 22:22, NONSPECIFIC T WAVE ABNORMALITY NO LONGER EVIDENT IN LATERAL LEADS Confirmed by Tal Granados MD ([id number]) on 07/11/2019 10:17:03 AM Referred By: Dhara Berg Confirmed By:Tal Granados MD
[2019-07-11 10:25] LABS: HEMATOCRIT 31.1 % (32.4-45.2); HEMOGLOBIN 10.4 GM/dL (10.7-15.3); MCH 34.5 pg (25.7-33.7); MCHC 33.4 g/dl (32.0-36.0); MEAN CELL VOLUME 103.4 fl (80-96); MEAN PLT VOLUME 9.6 fl (7.5-11.1); PLATELET COUNT 297 K/MM3 (134-434); RDW 14.5 % (11.6-15.6); WHITE BLOOD COUNT 7.9 K/mm3 (4.0-10.0)
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
[2019-07-11 11:12] LABS: INR 0.97 (0.83-1.09); PROTHROMBIN TIME (PATIENT) 11.4 SEC (9.7-13.0)
[2019-07-11 11:39] LABS: ALBUMIN 3.1 g/dl (3.4-5.0); BILIRUBIN,TOTAL 0.3 mg/dL (0.2-1); BLOOD UREA NITROGEN 17.1 mg/dL (7-18); CALCIUM 8.3 mg/dL (8.5-10.1); POTASSIUM 4.2 mmol/L (3.5-5.1); TOT PROT 6.2 g/dl (6.4-8.2)
[2019-07-11] MEDS ORDERED: ACETAMINOPHEN 500 MG TABLET (FP) PO PRN (13:25)
[2019-07-11] MEDS ORDERED: IBUPROFEN 400 MG TABLET (FP) PO ONE (13:45)
[2019-07-11] MEDS: LIDOCAINE 5% TOPICAL PATCH TP SCH (13:46)
--- NOTE | 2019-07-11 13:49 | PN ---
[facility] Progress Note (SOAP) Subjective: called to see patient for c/o pain. She received 650 or tylenol w/o effect. Pt w /stage 4 ovarian cancer and UTI. She was on percocet for pain prior to admission but understands that she cannot have percocet while in rehab. Objective: General: appears to be in pain MSK: limited ROM Neuro: 2-12 intact Heart: s1 s2 Lungs: clear ABD: +BS, protuberant, tender to palpation, lower quadrants 07/11/19 13:46 Assessment: ABD pain r/t ovarian cancer 07/11/19 13:47 Plan: Discussed with pharmacy. One time dose 800mg of Motrin given Lidoderm patch for back pain ordered Tylenol increased to 1,000mg BID Will continue to monitor.
[2019-07-11 15:49] LABS: URINE APPEARANCE CLEAR; URINE BILIRUBIN NEGATIVE (NEGATIVE); URINE COLOR YELLOW; URINE GLUCOSE (UA) NEGATIVE (NEGATIVE); URINE KETONE NEGATIVE (NEGATIVE); URINE LEUK ESTERASE NEGATIVE (NEGATIVE); URINE NITRITE NEGATIVE (NEGATIVE); URINE PROTEIN NEGATIVE (NEGATIVE); URINE UROBILINOGEN 0.2 mg/dL (0.2-1.0)
[2019-07-11] MEDS: THIAMINE HCL 100 MG TABLET (FP) PO SCH (21:09)
[2019-07-11] MEDS: LIDOCAINE PATCH REMOVAL MC SCH (21:10)
[2019-07-11] MEDS: QUEtiapine FUMARATE 100 MG TABLET (FP) PO SCH (21:11)
[2019-07-11] MEDS: MELATONIN 5 MG TABLETS PO PRN (21:11)
[2019-07-12] MEDS: NITROFURANTOIN MACROCRYSTAL 50 MG CAPSULE (FP) PO SCH ×4 (00:30→17:35)
[2019-07-12] MEDS: DOCUSATE SODIUM 100 MG CAPSULE (FP) PO SCH ×3 (06:40→21:51)
[2019-07-12] MEDS: GABAPENTIN 300 MG CAPSULE (FP) PO SCH ×3 (06:40→21:51)
[2019-07-12] MEDS ORDERED: PT OWN MED DRAWER 7, Y5N ONE (07:04)
[2019-07-12] MEDS: ACETAMINOPHEN 325 MG TABLET (FP) PO PRN ×3 (08:37→21:58)
[2019-07-12] MEDS: PRENATAL VITAMINS W/ FOLIC ACID TABLET (FP) PO SCH (09:56)
[2019-07-12] MEDS: PANTOPRAZOLE 40 MG TABLET (FP) PO SCH ×2 (09:56→21:52)
[2019-07-12] MEDS: LIDOCAINE 5% TOPICAL PATCH TP SCH (09:56)
[2019-07-12] MEDS: APIXABAN 5 MG TABLET PO SCH ×2 (09:56→21:51)
[2019-07-12] MEDS: NICOTINE 21 MG/24 HOURS TOPICAL PATCH TD SCH (09:56)
[2019-07-12] MEDS: hydrOXYzine PAMOATE 50 MG CAPSULE (FP) PO PRN ×2 (09:57→14:13)
[2019-07-12] MEDS: THIAMINE HCL 100 MG TABLET (FP) PO SCH (21:51)
[2019-07-12] MEDS: QUEtiapine FUMARATE 100 MG TABLET (FP) PO SCH (21:52)
[2019-07-12] MEDS: MELATONIN 5 MG TABLETS PO PRN (21:56)
[2019-07-12] MEDS: LIDOCAINE PATCH REMOVAL MC SCH (22:07)
[2019-07-13] MEDS: DOCUSATE SODIUM 100 MG CAPSULE (FP) PO SCH ×3 (06:16→21:27)
[2019-07-13] MEDS: ACETAMINOPHEN 325 MG TABLET (FP) PO PRN ×3 (06:16→21:29)
[2019-07-13] MEDS: GABAPENTIN 300 MG CAPSULE (FP) PO SCH ×3 (06:16→21:27)
[2019-07-13] MEDS: LIDOCAINE 5% TOPICAL PATCH TP SCH (10:07)
[2019-07-13] MEDS: NICOTINE 21 MG/24 HOURS TOPICAL PATCH TD SCH (10:08)
[2019-07-13] MEDS: APIXABAN 5 MG TABLET PO SCH ×2 (10:08→21:27)
[2019-07-13] MEDS: PRENATAL VITAMINS W/ FOLIC ACID TABLET (FP) PO SCH (10:08)
[2019-07-13] MEDS: PANTOPRAZOLE 40 MG TABLET (FP) PO SCH ×2 (10:08→21:30)
[2019-07-13] MEDS: hydrOXYzine PAMOATE 50 MG CAPSULE (FP) PO PRN (10:09)
--- NOTE | 2019-07-13 15:12 | PN ---
[facility] Progress Note Note: Continues with pain r/t ovarian cancer. Lidoderm patch and keturah-dorman added to regimen,also gabapentin.
[2019-07-13] MEDS: QUEtiapine FUMARATE 100 MG TABLET (FP) PO SCH (21:27)
[2019-07-13] MEDS: THIAMINE HCL 100 MG TABLET (FP) PO SCH (21:27)
[2019-07-13] MEDS: LIDOCAINE PATCH REMOVAL MC SCH (21:28)
[2019-07-13] MEDS: MELATONIN 5 MG TABLETS PO PRN (21:28)
[2019-07-13] MEDS: METHYL SALICYLATE/MENTHOL OINT 30 GM TUBE TP SCH (21:30)
[2019-07-14] MEDS: DOCUSATE SODIUM 100 MG CAPSULE (FP) PO SCH ×3 (06:36→21:23)
[2019-07-14] MEDS: GABAPENTIN 300 MG CAPSULE (FP) PO SCH ×3 (06:36→21:23)
[2019-07-14] MEDS: APIXABAN 5 MG TABLET PO SCH ×2 (09:21→21:23)
[2019-07-14] MEDS: LIDOCAINE 5% TOPICAL PATCH TP SCH (09:21)
[2019-07-14] MEDS: PANTOPRAZOLE 40 MG TABLET (FP) PO SCH ×2 (09:21→21:23)
[2019-07-14] MEDS: PRENATAL VITAMINS W/ FOLIC ACID TABLET (FP) PO SCH (09:21)
[2019-07-14] MEDS: NICOTINE 21 MG/24 HOURS TOPICAL PATCH TD SCH (09:21)
[2019-07-14] MEDS: hydrOXYzine PAMOATE 50 MG CAPSULE (FP) PO PRN (09:22)
[2019-07-14] MEDS: ACETAMINOPHEN 325 MG TABLET (FP) PO PRN ×2 (09:23→21:23)
[2019-07-14] MEDS ORDERED: PT OWN MED DRAWER 7, Y5N ONE (10:37)
[2019-07-14] MEDS ORDERED: COLLOIDAL OATMEAL 1 BAR EACH TP PRN (14:10)
[2019-07-14] MEDS: QUEtiapine FUMARATE 100 MG TABLET (FP) PO SCH (21:23)
[2019-07-14] MEDS: THIAMINE HCL 100 MG TABLET (FP) PO SCH (21:23)
[2019-07-14] MEDS: MELATONIN 5 MG TABLETS PO PRN (21:24)
[2019-07-14] MEDS: LIDOCAINE PATCH REMOVAL MC SCH (21:24)
[2019-07-14] MEDS: METHYL SALICYLATE/MENTHOL OINT 30 GM TUBE TP SCH (21:26)
[2019-07-15] MEDS: DOCUSATE SODIUM 100 MG CAPSULE (FP) PO SCH ×3 (06:15→21:52)
[2019-07-15] MEDS: GABAPENTIN 300 MG CAPSULE (FP) PO SCH ×3 (06:15→21:52)
[2019-07-15] MEDS: ACETAMINOPHEN 325 MG TABLET (FP) PO PRN ×2 (06:15→21:54)
[2019-07-15] MEDS: MENTHOL/PHENOL 1 EACH UD MM PRN (06:15)
[2019-07-15] MEDS: NICOTINE 21 MG/24 HOURS TOPICAL PATCH TD SCH (09:04)
[2019-07-15] MEDS: LIDOCAINE 5% TOPICAL PATCH TP SCH (09:04)
[2019-07-15] MEDS: APIXABAN 5 MG TABLET PO SCH ×2 (09:05→21:53)
[2019-07-15] MEDS: PANTOPRAZOLE 40 MG TABLET (FP) PO SCH ×2 (09:05→21:53)
[2019-07-15] MEDS: PRENATAL VITAMINS W/ FOLIC ACID TABLET (FP) PO SCH (09:05)
[2019-07-15] MEDS: hydrOXYzine PAMOATE 50 MG CAPSULE (FP) PO PRN (09:06)
[2019-07-15] MEDS ORDERED: PT OWN MED DRAWER 7, Y5N ONE (20:18)
[2019-07-15] MEDS: METHYL SALICYLATE/MENTHOL OINT 30 GM TUBE TP SCH (21:51)
[2019-07-15] MEDS: THIAMINE HCL 100 MG TABLET (FP) PO SCH (21:52)
[2019-07-15] MEDS: QUEtiapine FUMARATE 100 MG TABLET (FP) PO SCH (21:52)
[2019-07-15] MEDS: MELATONIN 5 MG TABLETS PO PRN (21:52)
[2019-07-15] MEDS: LIDOCAINE PATCH REMOVAL MC SCH (21:57)
[2019-07-16] MEDS: GABAPENTIN 300 MG CAPSULE (FP) PO SCH ×3 (05:40→21:27)
[2019-07-16] MEDS: DOCUSATE SODIUM 100 MG CAPSULE (FP) PO SCH ×3 (05:40→21:28)
[2019-07-16] MEDS: MENTHOL/PHENOL 1 EACH UD MM PRN (05:41)
[2019-07-16] MEDS: PRENATAL VITAMINS W/ FOLIC ACID TABLET (FP) PO SCH (09:15)
[2019-07-16] MEDS: LIDOCAINE 5% TOPICAL PATCH TP SCH (09:15)
[2019-07-16] MEDS: PANTOPRAZOLE 40 MG TABLET (FP) PO SCH ×2 (09:15→21:28)
[2019-07-16] MEDS: APIXABAN 5 MG TABLET PO SCH ×2 (09:15→21:28)
[2019-07-16] MEDS: hydrOXYzine PAMOATE 50 MG CAPSULE (FP) PO PRN (09:15)
[2019-07-16] MEDS: NICOTINE 21 MG/24 HOURS TOPICAL PATCH TD SCH (09:15)
[2019-07-16] MEDS: ACETAMINOPHEN 325 MG TABLET (FP) PO PRN ×2 (13:05→21:28)
[2019-07-16] MEDS ORDERED: IBUPROFEN 600 MG TABLET (FP) PO ONE (13:40)
--- NOTE | 2019-07-16 13:40 | PN ---
[facility] Progress Note Note: Pt c/o pain and swollen lymph nodes of ant cervical chain. Pt has metastatic ovarian cancer. Pt was getting chemotherapy at [facility]. This was stopped b/c of her continued drug use. Pt states she will be going to [facility] for detention care- they will take her for medical services at [place]. Pt denies URI sx, or other Sx, recently treated for UTI. PE: palpable LN's of ant cervical chain and supraclavicular nodes Vital Signs - 24 hr 07/16/19 07/16/19 07/16/19 03:30 06:56 13:05 Temperature 99.0 F 97.9 F Pulse Rate 80 94 H Respiratory 18 18 18 Rate Blood Pressure 110/75 119/81 a/p: Ovarian cancer- nl VS and LN enlargement due to metastates from ovarian cancer pt needs further Rx- to get chemotherapy when she is illicit drug free at [place] [facility] Pt will be transferred to [facility]- pt to talk to counselor tomorrow to see if she can go earlier than her planned discharge date of 07/24. Pt states she is essentially homeless and will relapse if she is not in rehab. Pt would like Motrin for pain- understands the risk of bleeding- pt is on Eliquis after a pulmonary embolus
[2019-07-16] MEDS: METHYL SALICYLATE/MENTHOL OINT 30 GM TUBE TP SCH (21:25)
[2019-07-16] MEDS: THIAMINE HCL 100 MG TABLET (FP) PO SCH (21:28)
[2019-07-16] MEDS: QUEtiapine FUMARATE 100 MG TABLET (FP) PO SCH (21:28)
[2019-07-16] MEDS: MELATONIN 5 MG TABLETS PO PRN (21:28)
[2019-07-16] MEDS: LIDOCAINE PATCH REMOVAL MC SCH (21:31)
[2019-07-17] MEDS: ACETAMINOPHEN 325 MG TABLET (FP) PO PRN ×2 (06:02→18:19)
[2019-07-17] MEDS: GABAPENTIN 300 MG CAPSULE (FP) PO SCH ×3 (06:02→21:32)
[2019-07-17] MEDS: DOCUSATE SODIUM 100 MG CAPSULE (FP) PO SCH ×3 (06:02→21:32)
[2019-07-17] MEDS: MENTHOL/PHENOL 1 EACH UD MM PRN (06:04)
[2019-07-17] MEDS: APIXABAN 5 MG TABLET PO SCH ×2 (09:32→21:32)
[2019-07-17] MEDS: LIDOCAINE 5% TOPICAL PATCH TP SCH (09:32)
[2019-07-17] MEDS: PRENATAL VITAMINS W/ FOLIC ACID TABLET (FP) PO SCH (09:32)
[2019-07-17] MEDS: NICOTINE 21 MG/24 HOURS TOPICAL PATCH TD SCH (09:32)
[2019-07-17] MEDS: PANTOPRAZOLE 40 MG TABLET (FP) PO SCH ×2 (09:32→21:32)
[2019-07-17] MEDS: hydrOXYzine PAMOATE 50 MG CAPSULE (FP) PO PRN (09:34)
[2019-07-17] MEDS ORDERED: AMMONIUM LACTATE 12% LOTION 225 GM BOTTLE TP PRN (13:51)
[2019-07-17] MEDS ORDERED: PT OWN MED DRAWER 7, Y5N ONE (16:31)
[2019-07-17] MEDS: QUEtiapine FUMARATE 100 MG TABLET (FP) PO SCH (21:32)
[2019-07-17] MEDS: MELATONIN 5 MG TABLETS PO PRN (21:32)
[2019-07-17] MEDS: THIAMINE HCL 100 MG TABLET (FP) PO SCH (21:32)
[2019-07-17] MEDS: METHYL SALICYLATE/MENTHOL OINT 30 GM TUBE TP SCH (21:33)
[2019-07-17] MEDS: LIDOCAINE PATCH REMOVAL MC SCH (21:33)
[2019-07-17] MEDS ORDERED: IBUPROFEN 600 MG TABLET (FP) PO ONE (22:00)
[2019-07-18] MEDS: GABAPENTIN 300 MG CAPSULE (FP) PO SCH ×3 (06:38→21:32)
[2019-07-18] MEDS: DOCUSATE SODIUM 100 MG CAPSULE (FP) PO SCH ×3 (06:38→21:32)
[2019-07-18] MEDS: hydrOXYzine PAMOATE 50 MG CAPSULE (FP) PO PRN ×2 (06:38→14:13)
[2019-07-18] MEDS: LIDOCAINE 5% TOPICAL PATCH TP SCH (10:11)
[2019-07-18] MEDS: APIXABAN 5 MG TABLET PO SCH ×2 (10:12→21:34)
[2019-07-18] MEDS: PRENATAL VITAMINS W/ FOLIC ACID TABLET (FP) PO SCH (10:12)
[2019-07-18] MEDS: PANTOPRAZOLE 40 MG TABLET (FP) PO SCH ×2 (10:12→21:32)
[2019-07-18] MEDS: NICOTINE 21 MG/24 HOURS TOPICAL PATCH TD SCH (10:12)
[2019-07-18] MEDS: ACETAMINOPHEN 325 MG TABLET (FP) PO PRN ×2 (10:14→21:32)
[2019-07-18] MEDS: THIAMINE HCL 100 MG TABLET (FP) PO SCH (21:32)
[2019-07-18] MEDS: QUEtiapine FUMARATE 100 MG TABLET (FP) PO SCH (21:32)
[2019-07-18] MEDS: LIDOCAINE PATCH REMOVAL MC SCH (21:34)
[2019-07-18] MEDS: METHYL SALICYLATE/MENTHOL OINT 30 GM TUBE TP SCH (21:34)
[2019-07-19] MEDS: DOCUSATE SODIUM 100 MG CAPSULE (FP) PO SCH ×3 (06:15→21:05)
[2019-07-19] MEDS: GABAPENTIN 300 MG CAPSULE (FP) PO SCH ×3 (06:15→21:05)
[2019-07-19] MEDS: ACETAMINOPHEN 325 MG TABLET (FP) PO PRN ×2 (06:15→21:05)
[2019-07-19] MEDS: LIDOCAINE 5% TOPICAL PATCH TP SCH (09:11)
[2019-07-19] MEDS: APIXABAN 5 MG TABLET PO SCH ×2 (09:11→21:05)
[2019-07-19] MEDS: NICOTINE 21 MG/24 HOURS TOPICAL PATCH TD SCH (09:12)
[2019-07-19] MEDS: PANTOPRAZOLE 40 MG TABLET (FP) PO SCH ×2 (09:12→21:05)
[2019-07-19] MEDS: PRENATAL VITAMINS W/ FOLIC ACID TABLET (FP) PO SCH (09:12)
[2019-07-19] MEDS: hydrOXYzine PAMOATE 50 MG CAPSULE (FP) PO PRN ×2 (09:13→21:05)
--- NOTE | 2019-07-19 13:39 | PN ---
[facility] Progress Note Note: Patient c/o muscle spasms and lower back discomfort. Patient on lidocaine patches and cannot receive Ibuprofen due to Eliquis treatment. Patient states pain localized to lower back area and non-radiating. Laboratory Tests 07/11/19 07/11/19 07/11/19 07:00 07:00 07:00 WBC 7.9 RBC 3.00 L Hgb 10.4 L Hct 31.1 L D MCV 103.4 H MCH 34.5 H MCHC 33.4 RDW 14.5 Plt Count 297 D MPV 9.6 PT with INR INR Sodium 139 Potassium 4.2 Chloride 109 H Carbon Dioxide 23 Anion Gap 6 L BUN 17.1 Creatinine 1.0 Est GFR (CKD-EPI)AfAm 72.42 Est GFR (CKD-EPI)NonAf 62.49 Random Glucose 141 H Calcium 8.3 L Total Bilirubin 0.3 AST 20 ALT 31 Alkaline Phosphatase 102 Total Protein 6.2 L Albumin 3.1 L Urine Color Urine Appearance Urine pH Ur Specific [place] Urine Protein Urine Glucose (UA) Urine Ketones Urine Blood Urine Nitrite Urine Bilirubin Urine Urobilinogen Ur Leukocyte Esterase RPR Titer Nonreactive HIV 1&2 Antibody Screen HIV P24 Antigen 07/11/19 07/11/19 07/11/19 07:00 07:00 10:05 WBC RBC Hgb Hct MCV MCH MCHC RDW Plt Count MPV PT with INR 11.40 INR 0.97 Sodium Potassium Chloride Carbon Dioxide Anion Gap BUN Creatinine Est GFR (CKD-EPI)AfAm Est GFR (CKD-EPI)NonAf Random Glucose Calcium Total Bilirubin AST ALT Alkaline Phosphatase Total Protein Albumin Urine Color Yellow Urine Appearance Clear Urine pH 7.0 D Ur Specific [place] 1.009 L Urine Protein Negative Urine Glucose (UA) Negative Urine Ketones Negative Urine Blood Negative Urine Nitrite Negative Urine Bilirubin Negative Urine Urobilinogen 0.2 Ur Leukocyte Esterase Negative RPR Titer HIV 1&2 Antibody Screen Negative HIV P24 Antigen Negative Vital Signs Temperature 98.0 F 07/19/19 07:07 Pulse Rate 80 07/19/19 07:07 Respiratory Rate 18 07/19/19 07:07 Blood Pressure 143/90 07/19/19 07:07 O2 Sat by Pulse Oximetry (%) PE alert and oriented x 3 skin warm and dry ext full rom, amb ad madelin no tremors A/P: muscle spasms will add flexeril 5mg po bid prn monitor clinically
[2019-07-19] MEDS: CYCLOBENZAPRINE HCL 5 MG TABLET PO PRN ×2 (15:25→21:05)
[2019-07-19] MEDS: QUEtiapine FUMARATE 100 MG TABLET (FP) PO SCH (21:05)
[2019-07-19] MEDS: MELATONIN 5 MG TABLETS PO PRN (21:07)
[2019-07-19] MEDS: METHYL SALICYLATE/MENTHOL OINT 30 GM TUBE TP SCH (21:46)
[2019-07-19] MEDS: THIAMINE HCL 100 MG TABLET (FP) PO SCH (21:47)
[2019-07-19] MEDS: LIDOCAINE PATCH REMOVAL MC SCH (21:47)
[2019-07-20] MEDS ORDERED: ALBUTEROL SO4 0.083% IH SOL 2.5 MG/3 ML VIAL.NEB. NEB ONE (03:35)
[2019-07-20] MEDS: GABAPENTIN 300 MG CAPSULE (FP) PO SCH ×2 (06:22→14:16)
[2019-07-20] MEDS: DOCUSATE SODIUM 100 MG CAPSULE (FP) PO SCH ×2 (06:22→14:16)
[2019-07-20] MEDS: CYCLOBENZAPRINE HCL 5 MG TABLET PO PRN (06:22)
[2019-07-20] MEDS: ACETAMINOPHEN 325 MG TABLET (FP) PO PRN (06:22)
[2019-07-20] MEDS ORDERED: ALBUTEROL SO4 2.5/IPRATROPIUM 0.5 INH SOL 3 ML VIAL.NEB. NEB PRN (08:48)
--- NOTE | 2019-07-20 09:01 | PN ---
[facility] Progress Note (SOAP) Subjective: Pt is a 59 y/o female admitted to REHAB on 07/11/19 with a hx of alcohol and crack dependence c/o SOB during last night. Pt was seen by a provider last night and Nebulizer treatment x 1 given. Pt was seen now this morning laying in bed and continues with c/o SOB stating "I couldn't breathe at all last night and still short of breathe but better this morning". Denies hx of Asthma. Pt denies c/p, dizziness,nausea or vomiting. Pt does not appear in distress but slightly fatigued and anxious. Pt has a hx of blood clots to right lung(PE) and currently on Eliquis x 3 months. Other PMHx of cancer of ovaries of which she reports she has to be sober to start chemo therapy. Objective: 07/20/19 09:00 Vital Signs - 24 hr 07/20/19 07/20/19 07/20/19 00:30 03:43 07:07 Temperature 97.1 F L Pulse Rate 76 Respiratory 18 18 Rate Blood Pressure 147/94 O2 Sat by Pulse 98 100 Oximetry (%) Laboratory Tests 07/11/19 07/11/19 07/11/19 07:00 07:00 07:00 WBC 7.9 RBC 3.00 L Hgb 10.4 L Hct 31.1 L D MCV 103.4 H MCH 34.5 H MCHC 33.4 RDW 14.5 Plt Count 297 D MPV 9.6 PT with INR INR Sodium 139 Potassium 4.2 Chloride 109 H Carbon Dioxide 23 Anion Gap 6 L BUN 17.1 Creatinine 1.0 Est GFR (CKD-EPI)AfAm 72.42 Est GFR (CKD-EPI)NonAf 62.49 Random Glucose 141 H Calcium 8.3 L Total Bilirubin 0.3 AST 20 ALT 31 Alkaline Phosphatase 102 Total Protein 6.2 L Albumin 3.1 L Urine Color Urine Appearance Urine pH Ur Specific [place] Urine Protein Urine Glucose (UA) Urine Ketones Urine Blood Urine Nitrite Urine Bilirubin Urine Urobilinogen Ur Leukocyte Esterase RPR Titer Nonreactive HIV 1&2 Antibody Screen HIV P24 Antigen 07/11/19 07/11/19 07/11/19 07:00 07:00 10:05 WBC RBC Hgb Hct MCV MCH MCHC RDW Plt Count MPV PT with INR 11.40 INR 0.97 Sodium Potassium Chloride Carbon Dioxide Anion Gap BUN Creatinine Est GFR (CKD-EPI)AfAm Est GFR (CKD-EPI)NonAf Random Glucose Calcium Total Bilirubin AST ALT Alkaline Phosphatase Total Protein Albumin Urine Color Yellow Urine Appearance Clear Urine pH 7.0 D Ur Specific [place] 1.009 L Urine Protein Negative Urine Glucose (UA) Negative Urine Ketones Negative Urine Blood Negative Urine Nitrite Negative Urine Bilirubin Negative Urine Urobilinogen 0.2 Ur Leukocyte Esterase Negative RPR Titer HIV 1&2 Antibody Screen Negative HIV P24 Antigen Negative Active Medications Generic Name Dose Route Start Last Admin Trade Name Freq PRN Reason Stop Dose Admin Acetaminophen 975 mg 07/12/19 07:43 07/20/19 06:22 Tylenol - PO 975 mg Q6H PRN Administration PAIN LEVEL 6-10 Al Hydroxide/Mg Hydroxide 30 ml 07/10/19 19:11 Mylanta Oral Suspension - PO Q6H PRN DYSPEPSIA Apixaban 5 mg 07/10/19 22:00 07/20/19 09:27 Eliquis - PO 5 mg BID LANIE Administration Colloidal Oatmeal 1 applic 07/14/19 14:10 07/14/19 18:48 Aveeno Soap - TP 1 applic DAILY PRN Administration HYGEINE Cyclobenzaprine HCl 5 mg 07/19/19 13:35 07/20/19 06:22 Cyclobenzaprine Hcl PO 5 mg BID PRN Administration MUSCLE SPASMS Docusate Sodium 100 mg 07/10/19 22:00 07/20/19 06:22 Colace - PO 100 mg TID LANIE Administration Eucalyptus/Menthol/Phenol/Sorbitol 1 each 07/10/19 19:11 07/17/19 06:04 Cepastat Lozenge - MM 1 each Q4H PRN Administration SORE THROAT Gabapentin 300 mg 07/10/19 22:00 07/20/19 06:22 Neurontin - PO 300 mg TID LANIE Administration Guaifenesin 10 ml 07/10/19 19:11 Robitussin - PO Q6H PRN COUGH Hydroxyzine Pamoate 50 mg 07/10/19 19:11 07/19/19 21:05 Vistaril - PO 50 mg Q4H PRN Administration AGITATION Lactic Acid 1 applic 07/17/19 13:51 07/17/19 16:32 Lac-Hydrin 12 TP 1 applic BID PRN Administration DRY SKIN Lidocaine 1 patch 07/11/19 14:00 07/20/19 09:28 Lidoderm Patch - TP 1 patch DAILY LANIE Administration Loperamide HCl 4 mg 07/10/19 19:11 Imodium - PO Q6H PRN DIARRHEA Magnesium Citrate 300 ml 07/10/19 19:11 Citroma - PO Q48H PRN CONSTIPATION Magnesium Hydroxide 30 ml 07/10/19 19:11 Milk Of Magnesia - PO DAILY PRN CONSTIPATION Melatonin 5 mg 07/10/19 22:00 07/19/19 21:07 Melatonin PO 5 mg HS PRN Administration INSOMNIA Methyl Salicylate 1 applic 07/13/19 22:00 07/19/19 21:46 Rey-Kwok - TP Not Given DAILY@2200 LANIE Miscellaneous 1 each 07/11/19 22:00 07/19/19 21:47 Lidoderm Patch Removal MC 1 each DAILY@2200 LANIE Administration Nicotine 21 mg 07/11/19 10:00 07/20/19 09:28 Nicoderm Patch - TD 21 mg DAILY LANIE Administration Nicotine Polacrilex 2 mg 07/10/19 19:11 Nicorette Gum - BUC Q2H PRN NICOTINE REPLACEMENT RX Pantoprazole Sodium 40 mg 07/10/19 22:00 07/20/19 09:27 Protonix - PO 40 mg BID LANIE Administration Multivit/Folic Acid/Iron 1 tab 07/11/19 10:00 07/20/19 09:27 Vitamins (Sjr) - PO 1 tab DAILY LANIE Administration Pseudoephedrine/Triprolidine 1 combo 07/10/19 19:11 Actifed - PO TID PRN NASAL CONGESTION Quetiapine Fumarate 100 mg 07/11/19 22:00 07/19/19 21:05 Seroquel - PO 100 mg HS LANIE Administration Thiamine HCl 100 mg 07/10/19 22:00 07/19/19 21:47 Vitamin B1 - PO 100 mg HS LANIE Administration Assessment: 07/20/19 10:07 SOB Hx PE-On Eliquis Plan: Based on pt's hx and sx of sob,pt will be transferred to [facility] ER for evaluation and clearance from acute pathological episode. Spoke to Dr. Mccormack at the ER who agreed to accept the patient. Pt may return to REHAB at [facility] to continue Chemical Dependency treatment after medical clearance to continue.
[2019-07-20 09:20] VITALS: BP 111/82; PULSE 79; TEMP 97.5
[2019-07-20] MEDS: PRENATAL VITAMINS W/ FOLIC ACID TABLET (FP) PO SCH (09:27)
[2019-07-20] MEDS: PANTOPRAZOLE 40 MG TABLET (FP) PO SCH (09:27)
[2019-07-20] MEDS: APIXABAN 5 MG TABLET PO SCH (09:27)
[2019-07-20] MEDS: LIDOCAINE 5% TOPICAL PATCH TP SCH (09:28)
[2019-07-20] MEDS: NICOTINE 21 MG/24 HOURS TOPICAL PATCH TD SCH (09:28)
--- NOTE | 2019-07-20 19:08 | PN ---
Teaching Attending Note Name of Resident: Radha Benjamin ATTENDING PHYSICIAN STATEMENT I saw and evaluated the patient. I reviewed the resident's note and discussed the case with the resident. I agree with the resident's findings and plan as documented. 59 F h/o ovarian ca w/ Stage 4 mets to colon, lungs, PSA (Etoh/crack cocaine/ tobacco), COPD/asthma, history of PE on AC, presents with acute episode of shortness of breath. Patient endorses being at [facility] then started to feel lower abdominal pain associated w/ shortness of breath. Currently patient's SOB resolved, ambulating around ED to the bathroom, feeling comfortable except for persistent lower abdominal pain. Endorses some constipation but denies hematochezia, diarrhea, hematuria or urinary changes. Was admitted months ago for extensive VATS procedure due to failed thoracocentesis was intubated and had prolonged course. Follows up with Heme-Onc at [facility] where she deferred her chemotherapy due to using drugs, endorses "being clean" now since 07/10/2019 and has a follow up appointment w/ Heme-Oncologist. PE VSS GA comfortable, aaox3, speaks in full sentences, walking back and forth to bathroom independently HEENT NC/aT, EOMI, no JVD, no stridor Chest CTAB, no wheezing or crackles, no stridor, L posterior back scar CVS S1, S2+, RRR Abd Soft, mildly distended, no guarding, lower abdominal tenderness to palpation Ext No LE edema, no calf tenderness Vital Signs - 24 hr 07/20/19 07/20/19 07/20/19 00:30 03:43 07:07 Temperature 97.1 F L Pulse Rate 76 Respiratory 18 18 Rate Blood Pressure 147/94 O2 Sat by Pulse 98 Oximetry (%) 07/20/19 09:19 Temperature 97.5 F L Pulse Rate 79 Respiratory 18 Rate Blood Pressure 111/82 O2 Sat by Pulse Oximetry (%) Laboratory Tests 07/11/19 07/11/19 07/11/19 07:00 07:00 07:00 WBC 7.9 RBC 3.00 L Hgb 10.4 L Hct 31.1 L D MCV 103.4 H MCH 34.5 H MCHC 33.4 RDW 14.5 Plt Count 297 D MPV 9.6 PT with INR INR Sodium 139 Potassium 4.2 Chloride 109 H Carbon Dioxide 23 Anion Gap 6 L BUN 17.1 Creatinine 1.0 Est GFR (CKD-EPI)AfAm 72.42 Est GFR (CKD-EPI)NonAf 62.49 Random Glucose 141 H Calcium 8.3 L Total Bilirubin 0.3 AST 20 ALT 31 Alkaline Phosphatase 102 Total Protein 6.2 L Albumin 3.1 L Urine Color Urine Appearance Urine pH Ur Specific [place] Urine Protein Urine Glucose (UA) Urine Ketones Urine Blood Urine Nitrite Urine Bilirubin Urine Urobilinogen Ur Leukocyte Esterase RPR Titer Nonreactive HIV 1&2 Antibody Screen HIV P24 Antigen 07/11/19 07/11/19 07/11/19 07:00 07:00 10:05 WBC RBC Hgb Hct MCV MCH MCHC RDW Plt Count MPV PT with INR 11.40 INR 0.97 Sodium Potassium Chloride Carbon Dioxide Anion Gap BUN Creatinine Est GFR (CKD-EPI)AfAm Est GFR (CKD-EPI)NonAf Random Glucose Calcium Total Bilirubin AST ALT Alkaline Phosphatase Total Protein Albumin Urine Color Yellow Urine Appearance Clear Urine pH 7.0 D Ur Specific [place] 1.009 L Urine Protein Negative Urine Glucose (UA) Negative Urine Ketones Negative Urine Blood Negative Urine Nitrite Negative Urine Bilirubin Negative Urine Urobilinogen 0.2 Ur Leukocyte Esterase Negative RPR Titer HIV 1&2 Antibody Screen Negative HIV P24 Antigen Negative Current Medications Generic Name Dose Route Start Last Admin Trade Name Benignoq PRN Reason Stop Dose Admin Acetaminophen 975 mg 07/12/19 07:43 07/20/19 06:22 Tylenol - PO 975 mg Q6H PRN Administration PAIN LEVEL 6-10 Al Hydroxide/Mg Hydroxide 30 ml 07/10/19 19:11 Mylanta Oral Suspension - PO Q6H PRN DYSPEPSIA Apixaban 5 mg 07/10/19 22:00 07/20/19 09:27 Eliquis - PO 5 mg BID LANIE Administration Colloidal Oatmeal 1 applic 07/14/19 14:10 07/14/19 18:48 Aveeno Soap - TP 1 applic DAILY PRN Administration HYGEINE Cyclobenzaprine HCl 5 mg 07/19/19 13:35 07/20/19 06:22 Cyclobenzaprine Hcl PO 5 mg BID PRN Administration MUSCLE SPASMS Docusate Sodium 100 mg 07/10/19 22:00 07/20/19 14:16 Colace - PO Not Given TID LANIE Eucalyptus/Menthol/Phenol/Sorbitol 1 each 07/10/19 19:11 07/17/19 06:04 Cepastat Lozenge - MM 1 each Q4H PRN Administration SORE THROAT Gabapentin 300 mg 07/10/19 22:00 07/20/19 14:16 Neurontin - PO Not Given TID LANIE Guaifenesin 10 ml 07/10/19 19:11 Robitussin - PO Q6H PRN COUGH Hydroxyzine Pamoate 50 mg 07/10/19 19:11 07/19/19 21:05 Vistaril - PO 50 mg Q4H PRN Administration AGITATION Lactic Acid 1 applic 07/17/19 13:51 07/17/19 16:32 Lac-Hydrin 12 TP 1 applic BID PRN Administration DRY SKIN Lidocaine 1 patch 07/11/19 14:00 07/20/19 09:28 Lidoderm Patch - TP 1 patch DAILY LANIE Administration Loperamide HCl 4 mg 07/10/19 19:11 Imodium - PO Q6H PRN DIARRHEA Magnesium Citrate 300 ml 07/10/19 19:11 Citroma - PO Q48H PRN CONSTIPATION Magnesium Hydroxide 30 ml 07/10/19 19:11 Milk Of Magnesia - PO DAILY PRN CONSTIPATION Melatonin 5 mg 07/10/19 22:00 07/19/19 21:07 Melatonin PO 5 mg HS PRN Administration INSOMNIA Methyl Salicylate 1 applic 07/13/19 22:00 07/19/19 21:46 Rey-Kwok - TP Not Given DAILY@2200 LANIE Miscellaneous 1 each 07/11/19 22:00 07/19/19 21:47 Lidoderm Patch Removal MC 1 each DAILY@2200 LANIE Administration Nicotine 21 mg 07/11/19 10:00 07/20/19 09:28 Nicoderm Patch - TD 21 mg DAILY LANIE Administration Nicotine Polacrilex 2 mg 07/10/19 19:11 Nicorette Gum - BUC Q2H PRN NICOTINE REPLACEMENT RX Pantoprazole Sodium 40 mg 07/10/19 22:00 07/20/19 09:27 Protonix - PO 40 mg BID LANIE Administration Multivit/Folic Acid/Iron 1 tab 07/11/19 10:00 07/20/19 09:27 Vitamins (Sjr) - PO 1 tab DAILY LANIE Administration Pseudoephedrine/Triprolidine 1 combo 12/23/19 19:11 Actifed - PO TID PRN NASAL CONGESTION Quetiapine Fumarate 100 mg 07/11/19 22:00 07/19/19 21:05 Seroquel - PO 100 mg HS LANIE Administration Thiamine HCl 100 mg 07/10/19 22:00 07/19/19 21:47 Vitamin B1 - PO 100 mg HS LANIE Administration A/P: 59 F h/o Stage 4 ovarian ca with known lung/mediastinal mets, colon mets, PSA using crack/cocaine/Etoh, active smoker, ?h/o asthma/COPD, presents with acute episode of SOB while at [facility] for detox. SOB now resolved, patient comfortable but requesting pain medications for lower abdominal pain. Acute episode of shortness of breath, now resolved patient w/ history of Stage 4 Ovarian ca w/ metastasis to lung and colon, this alone can give her dyspnea, EKG negative for ischemic changes, denies CP, doubt ACS. Patient c/o chronic lower abdominal pain, was previously on Oxycodone 10mg TID by PCP but endorses she hasn't getting any at [facility] detox center Give 1 dose of IV morphine 2mg, for breakthrough pain start Percocet 5/325mg 1 tab Q6H PRN for pain 7-10 intensity. Please confirm pain medications with patient's pharmacy. Patient already has follow up w/ Heme-Oncologist at [facility] Dr. Hurt CTA negative for PE, however showing adenopathy, and upper mediastinal mass with a subpleural nodule, no stridor on exam or signs of impending respiratory failure. Monitor VS and breathing PSA counseled patient on substance abuse, in Detox now to "get clean" to resume chemotherapy at [facility] patient endorses being clean since 07/10, obtain Utox when she urinates Watch for signs of withdrawal, supplement thiamine/FA/MV ?asthma/COPD chronic smoking history, no PFTs in chart consider PFTs as outpatient Duonebs PRN for SOB/wheezing DVT ppx: Eliquis for AC bowel regimen: Senna, docusate, Miralax
== END 2019-07-20 21:45 | disposition hospice, inpatient (51) | DRG 772 ==
LOC: YASAS 15:40 → Y3E 19:39
PROVIDERS: ADMIT Neuromusculoskeletal Medicine & OMM
PROC: HZ42ZZZ Group Counseling for Substance Abuse Treatment, Cognitive-Behavioral (ICD-10-PCS; principal; 2019-07-10)
DX: F14.20 Cocaine dependence, uncomplicated (principal); F10.10 Alcohol abuse, uncomplicated; F12.10 Cannabis abuse, uncomplicated; F17.210 Nicotine dependence, cigarettes, uncomplicated; F32.9 Major depressive disorder, single episode, unspecified; F19.24 Other psychoactive substance dependence with psychoactive substance-induced mood disorder; F19.282 Other psychoactive substance dependence with psychoactive substance-induced sleep disorder; G62.9 Polyneuropathy, unspecified; K21.9 Gastro-esophageal reflux disease without esophagitis; J44.9 Chronic obstructive pulmonary disease, unspecified; R06.02 Shortness of breath; M62.830 Muscle spasm of back; K59.00 Constipation, unspecified; R10.9 Unspecified abdominal pain; Z87.440 Personal history of urinary (tract) infections; Z85.43 Personal history of malignant neoplasm of ovary; Z85.038 Personal history of other malignant neoplasm of large intestine; Z85.118 Personal history of other malignant neoplasm of bronchus and lung; E66.9 Obesity, unspecified; Z68.32 Body mass index [BMI] 32.0-32.9, adult; Z86.711 Personal history of pulmonary embolism; Z79.01 Long term (current) use of anticoagulants; Z87.42 Personal history of other diseases of the female genital tract; Z92.21 Personal history of antineoplastic chemotherapy
CPT/HCPCS: 36415; 80053; 81003; 85027; 85610; 86593; 87389; 93005; 93010; 94640

== ENCOUNTER 2019-07-20 09:49 | Observation (INO) | payer OTHER ==
--- NOTE | 2019-07-20 09:54 | PDOC ---
History of Present Illness - General Chief Complaint: Weakness Stated Complaint: Weakness/cough/body aches Time Seen by Provider: 07/20/19 09:53 History Source: Patient Exam Limitations: No Limitations Past History - Past Medical History Allergies/Adverse Reactions: Allergies Allergy/AdvReac Type Severity Reaction Status Date / Time No Known Allergies Allergy Verified 07/20/19 09:52 Home Medications: Ambulatory Orders Apixaban [Eliquis -] 5 mg PO BID 07/10/19 Docusate Sodium [Docusate 100 mg] 100 mg PO TID 07/10/19 Gabapentin [Neurontin -] 300 mg PO TID 07/10/19 Melatonin 1 mg PO HS 07/10/19 Mirtazapine [Remeron -] 15 mg PO HS 07/10/19 Nitrofurantoin Macrocrystal [Nitrofurantoin] 100 mg PO BID 07/10/19 Oxycodone HCl 10 mg PO TID 07/10/19 Pantoprazole Sodium [Protonix -] 40 mg PO BID 07/10/19 Anemia: No Asthma: No Cancer: No Cardiac Disorders: No CVA: No COPD: No CHF: No Dementia: No Diabetes: No GI Disorders: No Disorders: No HTN: No Hypercholesterolemia: No Kidney Stones: No Liver Disease: No Seizures: No Thyroid Disease: No - Surgical History Abdominal Surgery: No Appendectomy: No Cardiac Surgery: No Cholecystectomy: No Lung Surgery: Yes Neurologic Surgery: No Orthopedic Surgery: No - Reproductive History PID: No - Psycho Social/Smoking Cessation Hx Smoking History: Current every day smoker Have you smoked in the past 12 months: Yes Number of Cigarettes Smoked Daily: 10 'Breaking Loose' booklet given: 07/10/19 Hx Alcohol Use: Yes Drug/Substance Use Hx: Yes Substance Use Type: Alcohol, Cocaine, Marijuana Hx Substance Use Treatment: Yes (detox, rehab)
--- NOTE | 2019-07-20 09:58 | PDOC ---
History of Present Illness - General Chief Complaint: Weakness Stated Complaint: Weakness/cough/body aches Time Seen by Provider: 07/20/19 09:53 History Source: Patient Exam Limitations: No Limitations - History of Present Illness Initial Comments: 07/20/19 09:59 59yF w PMHx ovarian cancer w mets to chest, substance abuse (marijuana, cocaine , alcohol), PE on eliquis presenting from [facility] w SOB. Started insiduous onset last night in bed. Associated nasal congestion. Not associated w position/ exertion. Given nebulizer today with minimal relief, tyelnol at 10a. 1 week lower AB discomfort. Admitted to [facility] 07/10 for substance abuse. Denies fever, nausea/vomiting, chest pain, dysuria, bowel mvmt changes. Onc - Dr Fe Hurt PCP - not [facility] Past History - Past Medical History Allergies/Adverse Reactions: Allergies Allergy/AdvReac Type Severity Reaction Status Date / Time No Known Allergies Allergy Verified 07/20/19 10:06 Home Medications: Ambulatory Orders Apixaban [Eliquis -] 5 mg PO BID 07/10/19 Docusate Sodium [Docusate 100 mg] 100 mg PO TID 07/10/19 Gabapentin [Neurontin -] 300 mg PO TID 07/10/19 Melatonin 1 mg PO HS 07/10/19 Mirtazapine [Remeron -] 15 mg PO HS 07/10/19 Nitrofurantoin Macrocrystal [Nitrofurantoin] 100 mg PO BID 07/10/19 Oxycodone HCl 10 mg PO TID 07/10/19 Pantoprazole Sodium [Protonix -] 40 mg PO BID 07/10/19 Anemia: No Asthma: No Cancer: No Cardiac Disorders: No CVA: No COPD: No CHF: No Dementia: No Diabetes: No GI Disorders: No Disorders: No HTN: No Hypercholesterolemia: No Kidney Stones: No Liver Disease: No Seizures: No Thyroid Disease: No - Surgical History Abdominal Surgery: No Appendectomy: No Cardiac Surgery: No Cholecystectomy: No Lung Surgery: Yes Neurologic Surgery: No Orthopedic Surgery: No - Reproductive History PID: No - Psycho Social/Smoking Cessation Hx Smoking History: Current every day smoker Have you smoked in the past 12 months: Yes Number of Cigarettes Smoked Daily: 10 'Breaking Loose' booklet given: 07/10/19 Hx Alcohol Use: Yes Drug/Substance Use Hx: Yes Substance Use Type: Alcohol, Cocaine, Marijuana Hx Substance Use Treatment: Yes (detox, rehab) Review of Systems - Review of Systems Constitutional: No: Chills, Fever HEENTM: No: Eye Pain, Recent change in vision, Nose Pain, Throat Pain, Mouth Pain Respiratory: Yes: Shortness of Breath. No: Cough Cardiac (ROS): No: Chest Pain, Palpitations, Syncope ABD/GI: No: Abdominal Distended, Constipated, Diarrhea, Nausea, Vomiting : No: Burning, Dysuria, Discharge, Hematuria Musculoskeletal: No: Back Pain, Joint Pain Integumentary: No: Bruising, Flushing, Lesions Neurological: No: Headache, Seizure, Tingling Psychiatric: No: Anxiety, Depression, Stressors Endocrine: No: Excessive Sweating, Flushing, Intolerance to Cold, Intolerance to Heat Hematologic/Lymphatic: No: Anemia, Blood Clots *Physical Exam - Physical Exam General Appearance: Yes: Nourished, Appropriately Dressed, Mild Distress HEENT: positive: EOMI, JATINDER, Normal Voice, Nasal Congestion, Hearing Grossly Normal. negative: Scleral Icterus (R), Scleral Icterus (L), Tonsillar Exudate, Tonsillar Erythema Neck: positive: Lymphadenopathy (R), Lymphadenopathy (L). negative: Tender Respiratory/Chest: positive: Lungs Clear, Normal Breath Sounds. negative: Chest Tender, Respiratory Distress, Crackles, Rales, Rhonchi, Stridor, Wheezing Cardiovascular: positive: Regular Rhythm, Regular Rate, S1, S2. negative: Edema , Murmur Gastrointestinal/Abdominal: positive: Normal Bowel Sounds, Flat, Soft, Other ( midline umbilical surgical scar, R abdomen laprascopic scars). negative: Tender , Organomegaly, Distended, Guarding, Rebound, Tenderness, Hernia, Mass Musculoskeletal: negative: CVA Tenderness (R), CVA Tenderness (L) Extremity: positive: Normal Capillary Refill Integumentary: positive: Normal Color. negative: Rash Neurologic: positive: dietetic tech II-XII NML intact, Fully Oriented, Alert, Normal Response, Responsive. negative: Sensory Deficit, Confused, Disoriented ED Treatment Course - LABORATORY CBC & Chemistry Diagram: 07/20/19 10:40 07/20/19 10:40 Medical Decision Making - Medical Decision Making 07/20/19 10:58 EKG shows new TWI V1-2, HR 77, QTc 448 compared to 07/10/[address] shows suboptimal PE study, no evidence of central pulm artery embolus. Present upper mediastinal adenopathy L 1.8cm, and masses 3.2 cm, R apex subpleural nodule 5.9mm. BG 240 --- 59yF w PMHx ovarian cancer w mets to chest, substance abuse (marijuana, cocaine , alcohol), PE on eliquis presenting from [facility] w SOB d/t lung mets (see above) vs PE (cannot definitely rule out with suboptimal study). Low concern for ACS (neg trop, no chest pain) vs PNA (no consolidation) vs flu (neg) vs UTI (clean UA) Admitted m/s obvs Dr Lanza for SOB d/t lung mets (see above) vs PE (cannot definitely rule out with suboptimal study). Consider V/Q scan or repeat CTA Discharge - Discharge Information Problems reviewed: Yes Clinical Impression/Diagnosis: SOB (shortness of breath) Condition: Stable - Follow up/Referral - Patient Discharge Instructions - Post Discharge Activity
[2019-07-20] MEDS ORDERED: ACETAMINOPHEN 500 MG TABLET (FP) PO ONE (10:18)
[2019-07-20 11:22] LABS: BASO % 0.3 % (0-2.0); EOS % 1.5 % (0-4.5); HEMATOCRIT 33.3 % (32.4-45.2); HEMOGLOBIN 11.3 GM/dL (10.7-15.3); LYMPH % 19.5 % (8-40); MCH 33.8 pg (25.7-33.7); MCHC 33.9 g/dl (32.0-36.0); MEAN CELL VOLUME 99.9 fl (80-96); MEAN PLT VOLUME 8.1 fl (7.5-11.1); MONO % 9.9 % (3.8-10.2); NEUT % 68.8 % (42.8-82.8); PLATELET COUNT 386 K/MM3 (134-434); RBC 3.33 M/mm3 (3.60-5.2); RDW 14.5 % (11.6-15.6); WHITE BLOOD COUNT 6.8 K/mm3 (4.0-10.0)
[2019-07-20 11:27] LABS: EPI CELLS 0.4 /HPF (0-5/HPF); HYALINE CASTS 0 /lpf (0-8); URINE APPEARANCE CLEAR; URINE BACTERIA 10.3 /hpf (NEGATIVE); URINE BILIRUBIN NEGATIVE (NEGATIVE); URINE COLOR YELLOW; URINE GLUCOSE (UA) NEGATIVE (NEGATIVE); URINE KETONE NEGATIVE (NEGATIVE); URINE LEUK ESTERASE TRACE (NEGATIVE); URINE NITRITE NEGATIVE (NEGATIVE); URINE PROTEIN NEGATIVE (NEGATIVE); URINE RBC 2 /hpf (0-4); URINE UROBILINOGEN 0.2 mg/dL (0.2-1.0); URINE WBC 2 /hpf (0-5)
[2019-07-20 11:32] LABS: PROTHROMBIN TIME (PATIENT) 11.8 SEC (9.7-13.0)
[2019-07-20 11:41] LABS: ALBUMIN 3.5 g/dl (3.4-5.0); ALK PHOS 166 U/L (45-117); ANION GAP 6 MMOL/L (8-16); BILIRUBIN,TOTAL 0.1 mg/dL (0.2-1); BLOOD UREA NITROGEN 17.4 mg/dL (7-18); CALCIUM 9.2 mg/dL (8.5-10.1); CHLORIDE 103 mmol/L (98-107); CO2 28 mmol/L (21-32); CREATININE 0.9 mg/dL (0.55-1.3); GLUCOSE,RANDOM 242 mg/dL (74-106); POTASSIUM 4.8 mmol/L (3.5-5.1); SGOT/AST 18 U/L (15-37); SGPT/ALT 55 U/L (13-61); SODIUM 137 mmol/L (136-145); TOT PROT 7.4 g/dl (6.4-8.2)
--- NOTE | 2019-07-20 11:49 | EKG ---
Test Reason : Blood Pressure : / mmHG Vent. Rate : 077 BPM Atrial Rate : 077 BPM P-R Int : 160 ms QRS Dur : 076 ms QT Int : 396 ms P-R-T Axes : 055 -02 040 degrees QTc Int : 448 ms POOR DATA QUALITY, INTERPRETATION MAY BE ADVERSELY AFFECTED NORMAL SINUS RHYTHM NORMAL ECG WHEN COMPARED WITH ECG OF 10-JUL-2019 19:37, NO SIGNIFICANT CHANGE WAS FOUND Confirmed by MABLE UREÑA, KIM ([id number]) on 07/20/2019 11:49:25 AM Referred By: Confirmed By:KIM AKINS MD
--- NOTE | 2019-07-20 12:04 | PDOC ---
Attending Attestation - Resident Resident Name: Ankur Nassar - ED Attending Attestation I have performed the following: I have examined & evaluated the patient, The case was reviewed & discussed with the resident, I agree w/resident's findings & plan, Exceptions are as noted - HPI HPI: 07/20/19 12:03 59 F with h/o stage 4 ovarian CA, polysubstance abuse, PE on eliquis, presenting with SOB. Pt reports sudden onset SOB while at rest last night. Denies CP. Denies F/C. Denies cough. Denies leg swelling. Pt reports intermittent compliance with eliquis since being diagnosed with PE in Mar 2019 , but she states she has been taking it daily since Jul 02. - Physicial Exam PE: 07/20/19 12:04 "GENERAL: Awake, alert, and fully oriented, in no acute distress. HEAD: No signs of trauma EYES: PERRLA, EOMI, sclera anicteric, conjunctiva clear ENT: Auricles normal inspection, hearing grossly normal, nares patent, oropharynx clear without exudates. Moist mucosa NECK: Nontender, no stepoffs, Normal ROM, supple, no lymphadenopathy, JVD, or masses LUNGS: Breath sounds equal, clear to auscultation bilaterally. No wheezes, and no crackles HEART: Regular rate and rhythm, normal S1 and S2, no murmurs, rubs or gallops ABDOMEN: Soft, nontender, normoactive bowel sounds. No guarding, no rebound. No masses EXTREMITIES: Normal range of motion, no edema. No clubbing or cyanosis. No cords, erythema, or tenderness NEUROLOGICAL: Cranial nerves II through XII intact. 5/5 strength and sensation in all extremities, Normal speech, normal gait, normal cerebellar function SKIN: Warm, Dry, normal turgor, no rashes or lesions noted. - Medical Decision Making 07/20/19 12:04 59 F with SOB. Will r/o PE given h/o PE. EKG with no ischemic changes to suggest ACS. - Labs - CTA chest
[2019-07-20] MEDS ORDERED: ALBUTEROL SO4 0.083% IH SOL 2.5 MG/3 ML VIAL.NEB. NEB PRN (16:21)
[2019-07-20] MEDS ORDERED: MORPHINE SULFATE 2 MG/ML VIAL IVPUSH PRN (16:21)
[2019-07-20] MEDS ORDERED: hydrOXYzine PAMOATE 25 MG CAPSULE (FP) PO PRN (16:25)
[2019-07-20] MEDS ORDERED: FLU VACCINE QUAD 60 MCG/0.5 ML (MDV 19-20) IM ONE (16:33)
--- NOTE | 2019-07-20 16:33 | HP ---
Hospitalist Medicine Admission 59 y/o F with PMH ovarian CA with mets to stomach, lung (previously on chemo; does not know name. Follows with Dr. Nikita Kaba, [facility]), polysubstance abuse ( crack cocaine, marijuana, cigarettes, alcohol), pulmonary emboli hx (on eliquis) , past R VATS s/p failed thoracentesis, esophageal hernia, ?back mass and resection, who presents for SOB from [facility]. Pt is ambulatory, and without desaturation. Does endorse dry cough "for long time." No pleuritic chest pain. During this time, endorses abdominal pain that is severe and intermittent, especially to palpation. States she has had this pain ever since her stomach met diagnosis. Per pt, she was at [facility] for rehab, but had gone initially with the intention of detox from alcohol. [facility] Fe Hurt, and completed 2 chemo tx. Was unable to continue since was not staying clean. Reports a repeat chest CT which showed that the lung mass had decreased in size. Was told that she was to have one more chemo tx, then a hysterectomy, and three more sessions. Reports normal past ECHO, but has had chemotherapy - induced neuropathy, nausea/emesis, and was scheduled by onc to also have an EGD prior to continuing w/ chemo. During this time, pt denies NO, fever, chills, altered mentation, seizures, or changes in urinary or bowel function. PMH: as above PsxH: past stomach ulcer, intubation and medically-induced coma at [facility] over summer, R VATS, esophageal hernia, "back mass " w/ resection meds: as in chart allergies: NKDA FH: liver cancer- brother, cancer- grandma, lung CA- maternal grandma SH: homeless. lives with different friends. not in intermediate, has smoked crack cocaine 100-150 dollars worth for 35 yrs. smokes 1 ppd cigarettes. alcohol 10-12 16 oz cans. last drink Jul 09. no current withdrawal sx. Allergies No Known Allergies Allergy (Verified 07/20/19 10:06) HOME MEDICATIONS: Home Medications Medication Instructions Recorded Apixaban [Eliquis -] 5 mg PO BID 07/10/19 Docusate Sodium [Docusate 100 mg] 100 mg PO TID 07/10/19 Gabapentin [Neurontin -] 300 mg PO TID 07/10/19 Melatonin 1 mg PO HS 07/10/19 Mirtazapine [Remeron -] 15 mg PO HS 07/10/19 Nitrofurantoin Macrocrystal 100 mg PO BID 07/10/19 [Nitrofurantoin] Oxycodone HCl 10 mg PO TID 07/10/19 Pantoprazole Sodium [Protonix -] 40 mg PO BID 07/10/19 PHYSICAL EXAMINATION Vital Signs - 24 hr 07/20/19 07/20/19 07/20/19 09:50 10:06 14:06 Temperature 97.5 F L 98.6 F Pulse Rate 79 Pulse Rate [ 86 Left Radial] Respiratory 16 18 Rate Blood Pressure 111/82 Blood Pressure 114/72 [Left Arm] O2 Sat by Pulse 99 98 96 Oximetry (%) Physical Exam general: resting comfortably, in NAD HEENT: NCAT, PERRLA neck: supple. no jvd cardio: S1, S2, RRR. no r/m/g pulm: CTA b/l. no accessory m usage. abdomen: +diffusely ttp. with guarding. 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 Laboratory Results - last 24 hr 07/20/19 07/20/19 07/20/19 10:18 10:40 10:40 WBC 6.8 RBC 3.33 L Hgb 11.3 Hct 33.3 MCV 99.9 H MCH 33.8 H MCHC 33.9 RDW 14.5 Plt Count 386 D MPV 8.1 D Absolute Neuts (auto) 4.7 Neutrophils % 68.8 Lymphocytes % 19.5 Monocytes % 9.9 Eosinophils % 1.5 Basophils % 0.3 Nucleated RBC % 0 PT with INR INR Sodium 137 Potassium 4.8 Chloride 103 Carbon Dioxide 28 Anion Gap 6 L BUN 17.4 Creatinine 0.9 Est GFR (CKD-EPI)AfAm 82.26 Est GFR (CKD-EPI)NonAf 70.98 Random Glucose 242 H Calcium 9.2 Total Bilirubin 0.1 L AST 18 ALT 55 Alkaline Phosphatase 166 H Troponin I < 0.02 Total Protein 7.4 Albumin 3.5 Urine Color Urine Appearance Urine pH Ur Specific [place] Urine Protein Urine Glucose (UA) Urine Ketones Urine Blood Urine Nitrite Urine Bilirubin Urine Urobilinogen Ur Leukocyte Esterase Urine WBC (Auto) Urine RBC (Auto) Urine Casts (Auto) U Epithel Cells (Auto) Urine Bacteria (Auto) Influenza A (Rapid) Negative Influenza B (Rapid) Negative 07/20/19 07/20/19 10:40 10:40 WBC RBC Hgb Hct MCV MCH MCHC RDW Plt Count MPV Absolute Neuts (auto) Neutrophils % Lymphocytes % Monocytes % Eosinophils % Basophils % Nucleated RBC % PT with INR 11.80 INR 1.00 Sodium Potassium Chloride Carbon Dioxide Anion Gap BUN Creatinine Est GFR (CKD-EPI)AfAm Est GFR (CKD-EPI)NonAf Random Glucose Calcium Total Bilirubin AST ALT Alkaline Phosphatase Troponin I Total Protein Albumin Urine Color Yellow Urine Appearance Clear Urine pH 7.0 Ur Specific [place] 1.012 Urine Protein Negative Urine Glucose (UA) Negative Urine Ketones Negative Urine Blood Negative Urine Nitrite Negative Urine Bilirubin Negative Urine Urobilinogen 0.2 Ur Leukocyte Esterase Trace Urine WBC (Auto) 2 Urine RBC (Auto) 2 Urine Casts (Auto) 0 U Epithel Cells (Auto) 0.4 Urine Bacteria (Auto) 10.3 Influenza A (Rapid) Influenza B (Rapid) Imaging EKG: NSR, 77bpm, qtc 448ms CTA: suboptimal opacity, no central pulm emboli preent, adenopathy of neck, upper mediastinal mass 3.2cm ASSESSMENT/PLAN: 59 y/o F with PMH ovarian CA with mets to stomach, lung (previously on chemo; does not know name. Follows with Dr. Hurt- Sesar, [facility]), polysubstance abuse ( crack cocaine, marijuana, cigarettes, alcohol), pulmonary emboli hx (on eliquis) , past R VATS s/p failed thoracentesis, esophageal hernia, ?back mass and resection, who presents for SOB from [facility]. #SOB likely 2/2 lung mets -without need for acute intervention at this time, pt appears comfortable -CTA (-) for emboli, no sign of infiltrate, or PNA -c/w duonebs RQID, ventolin nebs PRN -f/u ECHO, trops, EKG -pain control: morphine PRN, percocet PRN -palliative consult -does not need mi 02 at this time #ovarian CA with mets to stomach, lung -will need to call Dr. Hurt ([facility]) for additional info -has been unable to c/w chemo as still using -c/t f/u with Dr. Hurt on d/c #hx pulm emboli -c/w eliquis #polysubstance abuse -used crack cocaine, marijuana, cigarettes, alcohol -CIWA 0; no sign of current withdrawal. last drink Jul 09, per pt -vistaril PRN in case of agitation/anxiety -c/w thiamine, folic #hx recent UTI -no longer w/ dysuria; UA (-) -c/t monitor #insomnia -c/w remeron, melatonin #F/E/N encourage PO intake continue to follow lytes reg diet #PPX on eliquis #Dispo med-surg obs anticipate d/c 24-48 hrs Visit type - Emergency Visit Emergency Visit: Yes ED Registration Date: 07/20/19 Care time: The patient presented to the Emergency Department on the above date and was hospitalized for further evaluation of their emergent condition. - New Patient This patient is new to me today: Yes Date on this admission: 07/20/19 - Critical Care Critical Care patient: No
[2019-07-20 16:49] VITALS: BMI 27.0
[2019-07-20] MEDS ORDERED: ACETAMINOPHEN 325 MG TABLET (FP) PO PRN (17:06)
[2019-07-20] MEDS: MORPHINE SULFATE 2 MG/ML VIAL IVPUSH PRN ×2 (17:17→22:52)
[2019-07-20] MEDS: THIAMINE HCL 100 MG TABLET (FP) PO SCH (17:19)
[2019-07-20] MEDS: FOLIC ACID 1 MG TABLET (FP) PO SCH (17:19)
[2019-07-20] MEDS: DOCUSATE SODIUM 100 MG CAPSULE (FP) PO SCH (20:59)
[2019-07-20] MEDS: APIXABAN 5 MG TABLET PO SCH (20:59)
[2019-07-20] MEDS: oxyCODONE HCL 5 MG TABLET PO PRN (21:00)
[2019-07-20] MEDS: GABAPENTIN 300 MG CAPSULE (FP) PO SCH (21:00)
[2019-07-20] MEDS: PANTOPRAZOLE 40 MG TABLET (FP) PO SCH (21:00)
[2019-07-20] MEDS: ALBUTEROL SO4 2.5/IPRATROPIUM 0.5 INH SOL 3 ML VIAL.NEB. NEB SCH (21:31)
[2019-07-20] MEDS ORDERED: MELATONIN 1 MG TABLET PO SCH (22:00)
[2019-07-20] MEDS ORDERED: SENNOSIDES 8.6MG TABLET (FP) PO SCH (22:00)
[2019-07-21] MEDS: MORPHINE SULFATE 2 MG/ML VIAL IVPUSH PRN ×2 (03:29→12:46)
[2019-07-21] MEDS: GABAPENTIN 300 MG CAPSULE (FP) PO SCH ×2 (05:41→13:56)
[2019-07-21] MEDS: DOCUSATE SODIUM 100 MG CAPSULE (FP) PO SCH ×2 (05:41→13:56)
[2019-07-21] MEDS: oxyCODONE HCL 5 MG TABLET PO PRN (07:40)
[2019-07-21] MEDS: ALBUTEROL SO4 2.5/IPRATROPIUM 0.5 INH SOL 3 ML VIAL.NEB. NEB SCH ×2 (08:02→12:22)
--- NOTE | 2019-07-21 08:13 | PN ---
Teaching Attending Note Name of Resident: Radha Benjamin ATTENDING PHYSICIAN STATEMENT I saw and evaluated the patient. I reviewed the resident's note and discussed the case with the resident. I agree with the resident's findings and plan as documented. SUBJECTIVE: OBJECTIVE: Vital Signs Temperature 98.7 F 07/21/19 06:00 Pulse Rate 84 07/21/19 06:00 Respiratory Rate 07/21/19 06:00 Blood Pressure 118/71 07/21/19 06:00 O2 Sat by Pulse Oximetry (%) 98 07/20/19 21:00 General: young F , comfortable, not in distress complaint of abdominal pain asking pain medication HEENT; mucous membranes moist, no anemia, no jaundice, PERRLA, no nystagmus Neck: No JVD, supple, no bruit, thyroid palpably normal, normal carotid pulsations. Chest: Nontender, clear to auscultation bilaterally CVS: S1-S2 regularno murmur/gallop/rub Abdomen: Nondistended, soft, bowel sounds present. Extremities: No edema., No calf tenderness, pulses present JOURNEYMAN GLAZIER: AO X3 , no gross motor sensory deficit CBC, BMP 07/20/19 10:40 07/20/19 10:40 Active Medications Acetaminophen (Tylenol -) 325 mg PO Q6H PRN PRN Reason: PAIN LEVEL 7-10 Last Admin: 07/21/19 07:41 Dose: 325 mg Albuterol Sulfate (Ventolin 0.083% Nebulizer Soln -) 1 amp NEB Q4H PRN PRN Reason: SHORT OF BREATH/WHEEZING Last Admin: 07/21/19 02:22 Dose: 1 amp Albuterol/Ipratropium (Duoneb -) 1 amp NEB RQID [facility] Last Admin: 07/21/19 08:02 Dose: 1 amp Apixaban (Eliquis -) 5 mg PO BID [facility] Last Admin: 07/20/19 20:59 Dose: 5 mg Docusate Sodium (Colace -) 100 mg PO TID [facility] Last Admin: 07/21/19 05:41 Dose: 100 mg Folic Acid (Folic Acid -) 1 mg PO DAILY [facility] Last Admin: 07/20/19 17:19 Dose: 1 mg Gabapentin (Neurontin -) 300 mg PO TID [facility] Last Admin: 07/21/19 05:41 Dose: 300 mg Hydroxyzine Pamoate (Vistaril -) 25 mg PO Q6H PRN PRN Reason: WITHDRAWAL(CONT SUBST) Melatonin (Melatonin) 1 mg PO HS [facility] Last Admin: 07/20/19 21:20 Dose: 1 mg Morphine Sulfate (Morphine Sulfate) 2 mg IVPUSH Q4H PRN PRN Reason: PAIN LEVEL 4 - 6 Last Admin: 07/21/19 03:29 Dose: 2 mg Oxycodone HCl (Roxicodone -) 5 mg PO Q6H PRN PRN Reason: PAIN LEVEL 7-10 Last Admin: 07/21/19 07:40 Dose: 5 mg Pantoprazole Sodium (Protonix -) 40 mg PO BID [facility] Last Admin: 07/20/19 21:00 Dose: 40 mg Senna (Senna -) 1 tab PO HS [facility] Last Admin: 07/20/19 20:59 Dose: 1 tab Thiamine HCl (Vitamin B1 -) 100 mg PO DAILY [facility] Last Admin: 07/20/19 17:19 Dose: 100 mg ASSESSMENT AND PLAN: 59 years old female with history of ovarian cancer mets to stomach and lung status post chemotherapy, noncompliant polysubstance abuse active cocaine currently on cocaine rehab at [facility] yesterday transferred for shortness of breath and abdominal pain, CTA with PE protocol shows no central PE but mediastinal lymph node and pulmonary nodules that is consistent with patient previous history, Problem List - Problems (1) SOB (shortness of breath) Assessment/Plan: Patient is walking comfortably no history of asthma or COPD but active smoker, CT chest shows no pulmonary embolism, continue albuterol MDI, low-dose p.o. prednisone 20 mg daily for 5 days and pre-and post chest if no desaturation can be transferred back to [facility] Problems reviewed: Yes Code(s): R06.02 - SHORTNESS OF BREATH (2) History of ovarian cancer Assessment/Plan: Patient has history of ovarian cancer follow-up with [facility] at present no active issue can be follow-up once discharged as per patient she can make appointment at anytime with her oncologist Problems reviewed: Yes Code(s): Z85.43 - PERSONAL HISTORY OF MALIGNANT NEOPLASM OF OVARY (3) MDD (major depressive disorder) Assessment/Plan: Follow-up as outpatient is present and no suicidal or homicidal ideation. Problems reviewed: Yes Code(s): F32.9 - MAJOR DEPRESSIVE DISORDER, SINGLE EPISODE, UNSPECIFIED
[2019-07-21] MEDS ORDERED: PT OWN MED DRAWER 7, Y5N ONE (08:50)
[2019-07-21 08:58] VITALS: BP 136/92; TEMP 98.6
[2019-07-21] MEDS: FOLIC ACID 1 MG TABLET (FP) PO SCH (09:11)
[2019-07-21] MEDS: APIXABAN 5 MG TABLET PO SCH (09:11)
[2019-07-21] MEDS: PANTOPRAZOLE 40 MG TABLET (FP) PO SCH (09:11)
[2019-07-21] MEDS: THIAMINE HCL 100 MG TABLET (FP) PO SCH (09:12)
[2019-07-21 09:14] LABS: BASO % 0.4 % (0-2.0); EOS % 1.6 % (0-4.5); HEMATOCRIT 31.5 % (32.4-45.2); HEMOGLOBIN 10.8 GM/dL (10.7-15.3); LYMPH % 17.6 % (8-40); MCH 34.2 pg (25.7-33.7); MCHC 34.3 g/dl (32.0-36.0); MEAN CELL VOLUME 99.9 fl (80-96); MEAN PLT VOLUME 8.3 fl (7.5-11.1); MONO % 11.4 % (3.8-10.2); PLATELET COUNT 406 K/MM3 (134-434); RBC 3.16 M/mm3 (3.60-5.2); RDW 14.5 % (11.6-15.6); WHITE BLOOD COUNT 8.2 K/mm3 (4.0-10.0)
[2019-07-21 09:25] LABS: BLOOD UREA NITROGEN 16.7 mg/dL (7-18); CALCIUM 9.3 mg/dL (8.5-10.1); CREATININE 0.8 mg/dL (0.55-1.3); MAGNESIUM 1.8 mg/dL (1.8-2.4); PHOSPHOROUS 5.9 mg/dL (2.5-4.9); POTASSIUM 4.1 mmol/L (3.5-5.1)
[2019-07-21 12:29] VITALS: PULSE 92
--- NOTE | 2019-07-21 14:16 | ECHO ---
Name: JUAN PABLO TIGIST Exam:Adult Echocardiogram Study Date: 07/21/2019 10:23 AM Age: 59 yrs Height: 67 in Weight: 180 lb BSA: 1.9 m2 MMode/2D Measurements & Calculations IVSd: 0.97 cm Ao root diam: 2.9 cm LVIDd: 5.0 cm LA dimension: 4.6 cm LVIDs: 3.2 cm LVPWd: 0.93 cm LVPWs: 1.1 cm EDV(Teich): 115.8 ml ESV(Teich): 41.4 ml LVOT diam: 2.1 cm LAV (MOD-bp): 61.5 ml RV S Celestino: 11.6 cm/sec Doppler Measurements & Calculations MV E max celestino: 43.7 cm/sec Ao V2 max: 122.6 cm/sec MV A max celestino: 53.1 cm/sec Ao max P.0 mmHg MV E/A: 0.82 SMITA(V,D): 3.2 cm2 MV dec time: 0.26 sec LV V1 max P.2 mmHg TR max celestino: 244.3 cm/sec LV V1 max: 114.4 cm/sec TR max P.9 mmHg PA V2 max: 109.3 cm/sec Med Peak E' Celestino: 5.2 cm/sec PA max P.8 mmHg Med E/e': 8.4 Lat Peak E' Celestino: 8.2 cm/sec Lat E/e': 5.4 Procedure A complete two-dimensional transthoracic echocardiogram was performed (2D, M-mode, Doppler and color flow Doppler). Left Ventricle The left ventricular size, thickness and function are normal. The left ventricular ejection fraction is normal. Ejection Fraction = 60-65%. The left ventricular wall motion is normal. Right Ventricle The right ventricle is normal in size and function. Atria Normal left and right atrial size and function. Mitral Valve There is no mitral regurgitation noted. Tricuspid Valve There is trace tricuspid regurgitation. Right ventricular systolic pressure is normal. Aortic Valve The aortic valve is trileaflet. No hemodynamically significant valvular aortic stenosis. Trace aortic regurgitation. Pulmonic Valve There is no pulmonic valvular regurgitation. Great Vessels The aortic root is normal size. Pericardium/Pleura There is no pericardial effusion. Interpretation Summary The left ventricular size, thickness and function are normal The right ventricle is normal in size and function. There is trace tricuspid regurgitation. Trace aortic regurgitation. MD Ralf Ramos 07/21/2019 02:16 PM
--- NOTE | 2019-07-21 18:39 | DS ---
Physical Exam: SUBJECTIVE: Patient seen and examined at bedside. Improved SOB. Able to ambulate , without needing 02. Feeling well. To return to [facility] for rehab, d/w Dr. Hanson. Accepted OBJECTIVE: Vital Signs Period Temp Pulse Resp BP Sys/Chow Pulse Ox Last 24 Hr 98.4 F-98.9 F 84-96 18-20 98-138/63-92 96-98 PHYSICAL EXAM general: resting comfortably, in NAD HEENT: NCAT, PERRLA neck: supple. no jvd cardio: S1, S2, RRR. no r/m/g pulm: CTA b/l. no accessory m usage. abdomen: +diffusely ttp. with guarding. 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 grossly intact LABS Laboratory Results - last 24 hr 07/20/19 07/21/19 07/21/19 18:00 07:53 07:53 WBC 8.2 RBC 3.16 L Hgb 10.8 Hct 31.5 L MCV 99.9 H MCH 34.2 H MCHC 34.3 RDW 14.5 Plt Count 406 MPV 8.3 Absolute Neuts (auto) 5.6 Neutrophils % 69.0 Lymphocytes % 17.6 Monocytes % 11.4 H Eosinophils % 1.6 Basophils % 0.4 Nucleated RBC % 0 Sodium 134 L Potassium 4.1 Chloride 100 Carbon Dioxide 25 Anion Gap 8 BUN 16.7 Creatinine 0.8 Est GFR (CKD-EPI)AfAm 94.85 Est GFR (CKD-EPI)NonAf 81.84 Random Glucose 184 H Calcium 9.3 Phosphorus 5.9 H Magnesium 1.8 TSH 4.63 H Free T4 0.86 Resin T3 Uptake 29.1 L Microbiology 07/20/19 10:40 Urine - Urine Clean Catch Urine Culture - Final Normal Urogenital [facility] EKG: NSR, 77bpm, qtc 448ms CTA: suboptimal opacity, no central pulm emboli preent, adenopathy of neck, upper mediastinal mass 3.2cm HOSPITAL COURSE: Date of Admission:07/20/19 Date of Discharge: 07/21/19 59 y/o F with PMH ovarian CA with mets to stomach, lung (previously on chemo; does not know name. Follows with Dr. Nikita Kaba, [facility]), polysubstance abuse ( crack cocaine, marijuana, cigarettes, alcohol), pulmonary emboli hx (on eliquis) , past R VATS s/p failed thoracentesis, esophageal hernia, ?back mass and resection, who presents for SOB from [facility]. #SOB likely 2/2 lung mets -without need for acute intervention -CTA (-) for emboli, no sign of infiltrate, or PNA -c/w duonebs RQID, ventolin nebs PRN -pain control: morphine PRN, percocet PRN -does not need nc 02 at this time, does not need 02 on d/c per pre and post #ovarian CA with mets to stomach, lung -has been unable to c/w chemo as still using -c/t f/u with Dr. Hurt on d/c #hx pulm emboli -c/w eliquis #polysubstance abuse -used crack cocaine, marijuana, cigarettes, alcohol -CIWA 0; no sign of current withdrawal. last drink Jul 09, per pt -vistaril PRN in case of agitation/anxiety -c/w thiamine, folic #hx recent UTI -no longer w/ dysuria; UA (-) -c/t monitor #insomnia -c/w remeron, melatonin to return to [facility] rehab d/w Dr. hanson, accepted Minutes to complete discharge: 47 Discharge Summary Problems reviewed: Yes Reason For Visit: SHORTNESS OF BREATH Condition: Stable - Instructions Diet, Activity, Other Instructions: You were in the hospital because you had shortness of breath. It was likely that this was from the lung mass you have from the cancer metastases (spread). You were managed with bronchodilators to open your airways. You improved. You are being sent home. Medications You may continue with the following nebulizers to help open your airways: 1. Symbicort 2 puffs twice a day, scheduled 2. Albuterol (ventolin) 1 puff, every 4 hours as needed Please continue to take: thiamine, and folic acid to help your nutrition. We will give you a prescription for nicotine patches to help you cut back on smoking. This is very important. You may continue your other home medications; make sure you continue to take your eliquis for the past clot you had. Care You are on a blood thinner. If you notice blood in your stool or that you are vomiting blood/dizzy, please contact your doctor immediately. Continue to follow up at [facility]. We also recommend that you continue with 12- step NA meetings. You should use a diary to track your progress and follow with a sponsor to help you. Follow up Please follow with the following doctors upon your discharge: -Dr. Hanson, an process laboratory specialist at [facility] - this week -Dr. Dickson, a lung doctor (pulmonary) - this week -Dr. Hurt, your oncologist at [facility] - this week to restart your chemo treatment. Referrals: Dr. Fe Hurt [Other] - 1 Week Herve Dickson MD [Staff Physician] - 1 Week Neftali Hanson DO [Staff Physician] - 1 Week Disposition: I.P. ALCOHOL/SUBS ABUSE REHAB - Home Medications Comprehensive Discharge Medication List: Ambulatory Orders Apixaban [Eliquis -] 5 mg PO BID 07/10/19 Docusate Sodium [Docusate 100 mg] 100 mg PO TID 07/10/19 Gabapentin [Neurontin -] 300 mg PO TID 07/10/19 Melatonin 1 mg PO HS 07/10/19 Mirtazapine [Remeron -] 15 mg PO HS 07/10/19 Pantoprazole Sodium [Protonix -] 40 mg PO BID 07/10/19 Acetaminophen [Tylenol -] 650 mg PO Q6H PRN #30 tablet 07/21/19 Albuterol Sulfate Inhaler - [Ventolin Hfa Inhaler -] 1 puff IH Q4H #2 inhaler Budesonide/Formeterol Fumarate [SYMBICORT 80/4.5mcg -] 1 inh PO BID #1 cannister 07/21/19 Cyclobenzaprine HCl [Flexeril -] 10 mg PO BID 07/21/19 Folic Acid - 1 mg PO DAILY #30 tablet 07/21/19 Nicotine [Nicotine Patch 14mg/24 hr] 1 each TD DAILY #30 patch.td24 07/21/19 Quetiapine Fumarate [Seroquel -] 100 mg PO HS 07/21/19 Thiamine HCl [Vitamin B1 -] 100 mg PO DAILY #30 tablet 07/21/19 hydrOXYzine PAMOATE [Vistaril -] 25 mg PO Q6H PRN capsule 07/21/19 This patient is new to me today: No Emergency Visit: No Critical Care patient: No - Discharge Referral Referred to [facility] Med P.C.: No
== END 2019-07-21 15:23 | disposition other institution (70) ==
LOC: JER 09:49 → JERBED 14:48 → J5S 16:12
PROVIDERS: ATTEND Internal Medicine
PROC: 3E033NZ Introduction of Analgesics, Hypnotics, Sedatives into Peripheral Vein, Percutaneous Approach (ICD-10-PCS; principal; 2019-07-20)
PROC: 3E0F7GC Introduction of Other Therapeutic Substance into Respiratory Tract, Via Natural or Artificial Opening (ICD-10-PCS; 2019-07-20)
DX: R06.02 Shortness of breath (principal); C78.00 Secondary malignant neoplasm of unspecified lung; C78.89 Secondary malignant neoplasm of other digestive organs; F10.10 Alcohol abuse, uncomplicated; F14.10 Cocaine abuse, uncomplicated; F12.10 Cannabis abuse, uncomplicated; F17.210 Nicotine dependence, cigarettes, uncomplicated; Z87.440 Personal history of urinary (tract) infections; Z86.711 Personal history of pulmonary embolism; Z79.01 Long term (current) use of anticoagulants; Z92.21 Personal history of antineoplastic chemotherapy; G47.00 Insomnia, unspecified; Z85.43 Personal history of malignant neoplasm of ovary; F32.9 Major depressive disorder, single episode, unspecified
CPT/HCPCS: 36415; 71045-TC-FY; 71275-TC; 80048; 80053; 81003; 83735; 84100; 84439; 84443; 84479; 84484; 85025; 85610; 87086; 87804; 93005; 93010; 93306-TC; 94640; 94761; 96374; 99285-25; G0378; Q9967

== ENCOUNTER 2019-07-21 16:01 | Inpatient (IN) | payer OTHER ==
--- NOTE | 2019-07-21 15:41 | HP ---
YOLANDA UREÑA Rehab Assess/Revision - Admission History Admitted to Rehab from: Emergency Department Date of Admission to Rehab: 07/21/2019 - Vital signs Vital Signs: 59 y/o f pt send to ED 2nd to SOB on 07/20/2019 . Pt evaluated no longer experiencing SOB . No DVT or PE . Pt d/c'ed from ED backto [facility]. Pt improved . - Findings Detox History & Physical reviewed: Yes Concur with findings: Yes Comments/Additional Findings: 59 y/o F has h/o stage 4 Ovarian Ca with Mets , s /p PE. Treated with bronchodilators in ED for SOB now improved. Will return to rehab at [facility]. Inpatient Rehab Admission - Rehab Decision to Admit Inpatient rehab admission?: Yes - Initial Determination Are CD services needed?: Yes Free of communicable disease: Yes Not in need of hospitalization: Yes - Rehab Admission Criteria Previous failed treatment: Yes Poor recovery environment: No Comorbidities: Yes Lacks judgement: No Patient is meeting Inpatient Rehab admission criteria:: Yes
[~2019-07-21 16:01] MED LIST: ACETAMINOPHEN 325 MG TABLET (FP) PO PRN; ALBUTEROL SO4 8 GM HFA INHALER IH SCH; LOPERAMIDE HCL 2 MG CAPSULE PO PRN; MAG HYDROX/AL HYDROX/SIMETH 30 ML UNIT-DOSE CUP PO PRN; MAGNESIUM CITRATE 300 ML BOTTLE PO PRN; MAGNESIUM HYDROX 2400MG/30ML ORAL SUSPENSION 30 ML CUP PO PRN; MENTHOL/PHENOL 1 EACH UD MM PRN; P-EPHED 60MG/TRIPROLIDI 2.5MG TABLET PO PRN; guaiFENesin 200 MG/10 ML 10 ML UNIT-DOSE CUPS PO PRN
[2019-07-21 17:06] VITALS: BMI 31.2
[2019-07-21] MEDS ORDERED: ALBUTEROL SO4 0.083% IH SOL 2.5 MG/3 ML VIAL.NEB. NEB PRN (18:51)
[2019-07-21] MEDS ORDERED: ALBUTEROL SO4 8 GM HFA INHALER IH PRN (18:51)
[2019-07-21] MEDS ORDERED: PT OWN MED DRAWER 7, Y5N ONE (19:58)
[2019-07-21] MEDS: BUDESONIDE/FORMETEROL FUMARATE 80/4.5 mcg INHALER IH SCH (21:27)
[2019-07-21] MEDS: GABAPENTIN 300 MG CAPSULE (FP) PO SCH (21:29)
[2019-07-21] MEDS: MELATONIN 5 MG TABLETS PO SCH (21:29)
[2019-07-21] MEDS: DOCUSATE SODIUM 100 MG CAPSULE (FP) PO SCH (21:29)
[2019-07-21] MEDS: CYCLOBENZAPRINE HCL 10 MG TABLET (FP) PO SCH (21:29)
[2019-07-21] MEDS: APIXABAN 5 MG TABLET PO SCH (21:29)
[2019-07-21] MEDS: PANTOPRAZOLE 40 MG TABLET (FP) PO SCH (21:30)
[2019-07-21] MEDS: QUEtiapine FUMARATE 100 MG TABLET (FP) PO SCH (21:30)
[2019-07-21] MEDS: MIRTAZAPINE 15 MG TABLET (FP) PO SCH (21:30)
[2019-07-21] MEDS: ACETAMINOPHEN 325 MG TABLET (FP) PO PRN (21:32)
[2019-07-21] MEDS: THIAMINE HCL 100 MG TABLET (FP) PO SCH (21:35)
[2019-07-21] MEDS ORDERED: MELATONIN 1 MG TABLET PO SCH (22:00)
[2019-07-21] MEDS ORDERED: MELATONIN 5 MG TABLETS PO PRN (22:00)
[2019-07-22] MEDS: GABAPENTIN 300 MG CAPSULE (FP) PO SCH ×3 (06:39→22:36)
[2019-07-22] MEDS: DOCUSATE SODIUM 100 MG CAPSULE (FP) PO SCH ×3 (06:39→22:35)
[2019-07-22] MEDS: hydrOXYzine PAMOATE 25 MG CAPSULE (FP) PO PRN (06:40)
[2019-07-22] MEDS: NICOTINE 14 MG/24 HOURS TOPICAL PATCH TD SCH (10:25)
[2019-07-22] MEDS: BUDESONIDE/FORMETEROL FUMARATE 80/4.5 mcg INHALER IH SCH ×2 (10:26→22:36)
[2019-07-22] MEDS: APIXABAN 5 MG TABLET PO SCH ×2 (10:26→22:35)
[2019-07-22] MEDS: PRENATAL VITAMINS W/ FOLIC ACID TABLET (FP) PO SCH (10:26)
[2019-07-22] MEDS: FOLIC ACID 1 MG TABLET (FP) PO SCH (10:26)
[2019-07-22] MEDS: PANTOPRAZOLE 40 MG TABLET (FP) PO SCH ×2 (10:26→22:36)
[2019-07-22] MEDS: THIAMINE HCL 100 MG TABLET (FP) PO SCH ×2 (10:26→22:37)
[2019-07-22] MEDS: CYCLOBENZAPRINE HCL 10 MG TABLET (FP) PO SCH ×2 (10:27→22:35)
[2019-07-22] MEDS: LIDOCAINE 5% TOPICAL PATCH TP SCH (13:15)
[2019-07-22] MEDS: ACETAMINOPHEN 325 MG TABLET (FP) PO PRN (18:40)
[2019-07-22] MEDS ORDERED: CYCLOBENZAPRINE HCL 10 MG TABLET (FP) PO ONE (19:33)
--- NOTE | 2019-07-22 20:25 | PN ---
YOLANDA Progress Note Note: call by nurse to evaluate patient who has pain in right lung on inspiration associate with shortness of breath patient has stage 4 ovarian cancer with metastasis to lung and stomach has previous pulmonary embolism on eliquis had previous chemotherapy not completed alert lung no wheezing no calf tenderness history of alcohol disorder,cocaine and cannabis dependence bp 93/57,p87,r20,t98.8 impression chest pain r/o pulmonary embolism right stage 4 ovarian cancer with metastasis to lung and stomach alcohol disorder cocaine dependence cannabis abused treatment to er at [facility] for evaluation and treatment,endorsed to RADHA Walker patient will be transported by [facility] ambulance nursing grocery supervisor aware
[2019-07-22] MEDS: MELATONIN 5 MG TABLETS PO SCH (22:35)
[2019-07-22] MEDS: LIDOCAINE PATCH REMOVAL MC SCH (22:35)
[2019-07-22] MEDS: QUEtiapine FUMARATE 100 MG TABLET (FP) PO SCH (22:36)
[2019-07-22] MEDS: MIRTAZAPINE 15 MG TABLET (FP) PO SCH (22:36)
[2019-07-23] MEDS: GABAPENTIN 300 MG CAPSULE (FP) PO SCH ×3 (06:20→21:31)
[2019-07-23] MEDS: DOCUSATE SODIUM 100 MG CAPSULE (FP) PO SCH ×3 (06:20→21:31)
[2019-07-23] MEDS: hydrOXYzine PAMOATE 25 MG CAPSULE (FP) PO PRN ×2 (06:21→21:34)
[2019-07-23] MEDS: THIAMINE HCL 100 MG TABLET (FP) PO SCH ×2 (09:30→21:31)
[2019-07-23] MEDS: LIDOCAINE 5% TOPICAL PATCH TP SCH (09:30)
[2019-07-23] MEDS: BUDESONIDE/FORMETEROL FUMARATE 80/4.5 mcg INHALER IH SCH ×2 (09:30→21:35)
[2019-07-23] MEDS: ACETAMINOPHEN 325 MG TABLET (FP) PO PRN ×2 (09:31→21:34)
[2019-07-23] MEDS: NICOTINE 14 MG/24 HOURS TOPICAL PATCH TD SCH (09:31)
[2019-07-23] MEDS: FOLIC ACID 1 MG TABLET (FP) PO SCH (09:31)
[2019-07-23] MEDS: APIXABAN 5 MG TABLET PO SCH ×2 (09:31→21:31)
[2019-07-23] MEDS: PANTOPRAZOLE 40 MG TABLET (FP) PO SCH ×2 (09:31→21:31)
[2019-07-23] MEDS: PRENATAL VITAMINS W/ FOLIC ACID TABLET (FP) PO SCH (09:31)
[2019-07-23] MEDS: CYCLOBENZAPRINE HCL 10 MG TABLET (FP) PO SCH ×2 (09:31→21:32)
--- NOTE | 2019-07-23 12:56 | PN ---
[facility] Progress Note Note: Psychiatric nurse practitioner note: Patient scheduled for discharge tomorrow morning. A 30 day prescription of Seroquel 100mg HS was electronically sent to [facility], [address] [place] [address].
[2019-07-23] MEDS: QUEtiapine FUMARATE 100 MG TABLET (FP) PO SCH (21:31)
[2019-07-23] MEDS: LIDOCAINE PATCH REMOVAL MC SCH (21:32)
[2019-07-23] MEDS: MELATONIN 5 MG TABLETS PO SCH (21:33)
[2019-07-23] MEDS: MIRTAZAPINE 15 MG TABLET (FP) PO SCH (21:36)
[2019-07-24] MEDS: GABAPENTIN 300 MG CAPSULE (FP) PO SCH (06:25)
[2019-07-24] MEDS: DOCUSATE SODIUM 100 MG CAPSULE (FP) PO SCH (06:25)
[2019-07-24] MEDS: ACETAMINOPHEN 325 MG TABLET (FP) PO PRN (06:25)
[2019-07-24 07:03] VITALS: BP 126/86; PULSE 92; TEMP 98.2
[2019-07-24] MEDS: CYCLOBENZAPRINE HCL 10 MG TABLET (FP) PO SCH (09:36)
[2019-07-24] MEDS: FOLIC ACID 1 MG TABLET (FP) PO SCH (09:36)
[2019-07-24] MEDS: APIXABAN 5 MG TABLET PO SCH (09:36)
[2019-07-24] MEDS: PANTOPRAZOLE 40 MG TABLET (FP) PO SCH (09:37)
[2019-07-24] MEDS: NICOTINE 14 MG/24 HOURS TOPICAL PATCH TD SCH (09:37)
[2019-07-24] MEDS: PRENATAL VITAMINS W/ FOLIC ACID TABLET (FP) PO SCH (09:37)
[2019-07-24] MEDS: LIDOCAINE 5% TOPICAL PATCH TP SCH (09:37)
[2019-07-24] MEDS: BUDESONIDE/FORMETEROL FUMARATE 80/4.5 mcg INHALER IH SCH (09:38)
[2019-07-24] MEDS: THIAMINE HCL 100 MG TABLET (FP) PO SCH (09:39)
--- NOTE | 2019-07-24 10:46 | DS ---
[facility] Rehab Discharge Summary - [facility] Rehab Discharge Summary Admission Date: 07/21/19 Discharge Date: 07/24/19 - History Present History: Alcohol dependence, Cannabis dependence, Cocaine dependence Additional Comments: Pt is a 59 y/o female with a hx of JOSE admitted to rehab and discharging today. Pt has been referred to [facility] Outpt program for CD aftercare. Pt reports she has a primary care provider, Dr. Bautista at [facility], [address] [place] [address]. Pertinent Past History: Asthma PE GERD ovarian cancer Obesity Constipation Neuropathy Depressive disorder - Discharge Physical Exam Vital Signs: Vital Signs Temperature 98.2 F 07/24/19 07:01 Pulse Rate 92 H 07/24/19 07:01 Respiratory Rate 18 07/24/19 07:01 Blood Pressure 126/86 07/24/19 07:01 O2 Sat by Pulse Oximetry (%) 99 07/22/19 20:24 Alert o x 3,denies s/h/i nad("i feel fine"); In good spirit. oob ambulating with steady gait. cardiac:s1s2, rrr lungs:cta,jose alberto. abdomen; Pertinent Admission Physical Exam Findings: Medical Hx Unchanged from admissions - Treatment Discharge Condition: Discharge condition good Hospital Course: Rehabilitated safely CD aftercare referral accepted While pt is in rehab, pt was treated at [facility] ER for SOB and SOB with pain on 07/20/19 to 07/21/19 and 07/22/19 to 07/23/19, respectively. - Medication Discharge Medications: Ambulatory Orders Melatonin 1 mg PO HS 07/10/19 Mirtazapine [Remeron -] 15 mg PO HS 07/10/19 Pantoprazole Sodium [Protonix -] 40 mg PO BID 07/10/19 Acetaminophen [Tylenol -] 650 mg PO Q6H PRN #30 tablet 07/21/19 Albuterol Sulfate Inhaler - [Ventolin Hfa Inhaler -] 1 puff IH Q4H #2 inhaler Budesonide/Formeterol Fumarate [SYMBICORT 80/4.5mcg -] 1 inh PO BID #1 cannister 07/21/19 Cyclobenzaprine HCl [Flexeril -] 10 mg PO BID 07/21/19 Folic Acid - 1 mg PO DAILY #30 tablet 07/21/19 Nicotine [Nicotine Patch 14mg/24 hr] 1 each TD DAILY #30 patch.td24 07/21/19 Thiamine HCl [Vitamin B1 -] 100 mg PO DAILY #30 tablet 07/21/19 hydrOXYzine PAMOATE [Vistaril -] 25 mg PO Q6H PRN capsule 07/21/19 Quetiapine Fumarate [Seroquel -] 100 mg PO HS #30 tablet 07/23/19 Apixaban [Eliquis -] 5 mg PO BID #14 tablet 07/24/19 Docusate Sodium [Docusate 100 mg] 100 mg PO TID #21 capsule 07/24/19 Gabapentin [Neurontin -] 300 mg PO TID #21 capsule 07/24/19 - Medication-Assisted Treatment (MAT) Medication-Assisted Treatment (MAT): No - Discharge Instructions Diet, activity, other medical instructions: Diet:TANESHA Activity: oob ad madelin Other medical instructions:follow up with primary care Dr. Barrientos for medical management within 1 week after discharge. follow up with CD aftercare with [facility] as scheduled. - Diagnosis (1) Nicotine dependence Status: Chronic Qualifiers: Nicotine product type: cigarettes Substance use status: uncomplicated Qualified Code(s): F17.210 - Nicotine dependence, cigarettes, uncomplicated (2) Cocaine dependence Status: Chronic Qualifiers: Substance use status: uncomplicated Qualified Code(s): F14.20 - Cocaine dependence, uncomplicated (3) Alcohol use disorder Status: Chronic (4) Cannabis abuse Status: Chronic (5) GERD (gastroesophageal reflux disease) Status: Chronic Qualifiers: Esophagitis presence: without esophagitis Qualified Code(s): K21.9 - Gastro -esophageal reflux disease without esophagitis (6) History of pulmonary embolism Status: Resolved (7) History of ovarian cancer Status: Chronic (8) Constipation Status: Chronic Qualifiers: Constipation type: unspecified constipation type Qualified Code(s): K59.00 - Constipation, unspecified (9) History of neuropathy Status: Chronic (10) Obesity (BMI 30.0-34.9) Status: Chronic (11) SOB (shortness of breath) Status: Acute - Follow-up Referral Minutes to complete discharge: 20 - AMA Did Patient Leave Against Medical Advice: No
== END 2019-07-24 10:55 | disposition home or self-care (01) | DRG 772 ==
LOC: YASAS 16:01 → Y3E 16:21
PROVIDERS: ADMIT Neuromusculoskeletal Medicine & OMM; ATTEND Neuromusculoskeletal Medicine & OMM
PROC: HZ42ZZZ Group Counseling for Substance Abuse Treatment, Cognitive-Behavioral (ICD-10-PCS; principal; 2019-07-21)
DX: F10.20 Alcohol dependence, uncomplicated (principal); F14.20 Cocaine dependence, uncomplicated; F12.10 Cannabis abuse, uncomplicated; F17.210 Nicotine dependence, cigarettes, uncomplicated; K21.9 Gastro-esophageal reflux disease without esophagitis; K59.00 Constipation, unspecified; R06.02 Shortness of breath; R07.89 Other chest pain; C56.9 Malignant neoplasm of unspecified ovary; C79.01 Secondary malignant neoplasm of right kidney and renal pelvis; C78.89 Secondary malignant neoplasm of other digestive organs; Z79.01 Long term (current) use of anticoagulants
CPT/HCPCS: 94640

== ENCOUNTER 2019-07-22 21:13 | Emergency (ER) | payer OTHER ==
--- NOTE | 2019-07-22 21:51 | PDOC ---
History of Present Illness - General Stated Complaint: ABDOMINAL PAIN Time Seen by Provider: 07/22/19 21:31 Past History - Past Medical History Allergies/Adverse Reactions: Allergies Allergy/AdvReac Type Severity Reaction Status Date / Time No Known Allergies Allergy Verified 07/20/19 10:06 Home Medications: Ambulatory Orders Melatonin 1 mg PO HS 07/10/19 Mirtazapine [Remeron -] 15 mg PO HS 07/10/19 Pantoprazole Sodium [Protonix -] 40 mg PO BID 07/10/19 Acetaminophen [Tylenol -] 650 mg PO Q6H PRN #30 tablet 07/21/19 Albuterol Sulfate Inhaler - [Ventolin Hfa Inhaler -] 1 puff IH Q4H #2 inhaler Budesonide/Formeterol Fumarate [SYMBICORT 80/4.5mcg -] 1 inh PO BID #1 cannister 07/21/19 Cyclobenzaprine HCl [Flexeril -] 10 mg PO BID 07/21/19 Folic Acid - 1 mg PO DAILY #30 tablet 07/21/19 Nicotine [Nicotine Patch 14mg/24 hr] 1 each TD DAILY #30 patch.td24 07/21/19 Thiamine HCl [Vitamin B1 -] 100 mg PO DAILY #30 tablet 07/21/19 hydrOXYzine PAMOATE [Vistaril -] 25 mg PO Q6H PRN capsule 07/21/19 Quetiapine Fumarate [Seroquel -] 100 mg PO HS #30 tablet 07/23/19 Apixaban [Eliquis -] 5 mg PO BID #14 tablet 07/24/19 Docusate Sodium [Docusate 100 mg] 100 mg PO TID #21 capsule 07/24/19 Gabapentin [Neurontin -] 300 mg PO TID #21 capsule 07/24/19 Anemia: No Asthma: No Cancer: No Cardiac Disorders: No CVA: No COPD: No CHF: No Dementia: No Diabetes: No GI Disorders: No Disorders: No HTN: No Hypercholesterolemia: No Kidney Stones: No Liver Disease: No Psychiatric Problems: Yes (cocaine abuse) Seizures: No Thyroid Disease: No - Surgical History Abdominal Surgery: No Appendectomy: No Cardiac Surgery: No Cholecystectomy: No Lung Surgery: Yes Neurologic Surgery: No Orthopedic Surgery: No - Reproductive History PID: No - Psycho Social/Smoking Cessation Hx Smoking History: Current every day smoker Have you smoked in the past 12 months: Yes Number of Cigarettes Smoked Daily: 10 'Breaking Loose' booklet given: 07/10/19 Hx Alcohol Use: Yes Drug/Substance Use Hx: Yes Substance Use Type: Alcohol, Cocaine, Marijuana Hx Substance Use Treatment: Yes (detox, rehab) ED Treatment Course - LABORATORY CBC & Chemistry Diagram: 07/22/19 22:10 07/22/19 22:10 Medical Decision Making - Medical Decision Making 07/22/19 22:13 HPI: 59yo F hx recent admission here for SOB (07/20/19-07/21/19 with CTPE negative, but suboptimal), stage IV ovarian CA with mets to stomach and lung (previously on chemo; does not know name. Follows with Dr. Nikita Kaba, [facility]), polysubstance abuse (crack cocaine, marijuana, cigarettes, alcohol), pulmonary emboli hx (on eliquis), past R VATS s/p failed thoracentesis, esophageal hernia, ?back mass and resection, and LLE venous insufficiency (s/p surgery ~1.5yrs ago) presents from [facility] with new SOB x4 days, and acute on chronic (2/2 CA) "lung" and abdominal pain. New SOBx4 days, acute onset at rest, slightly improved since d/ c yesterday, admitted here with CTPE negative but suboptimal study, no hx similar sx even when had PE (was asymptomatic). Chronic "lung pain" since 2018 (dx cancer 11/2018) in R posterior thoracic region told by oncologist due to her cancer, worse with breathing, stabbing pain, intermittent, worse the past 4 days. Chronic abdominal pain since 12/2018 (dx cancer 11/2018), suprapubic, intermittent, worse x4 days, feels like "something sitting there", radiating to lower back, worse when touch suprapubic area or cough, radiating to R flank, associated with dysuria and urinary frequency and urgency. Told had UTI and took abx and was told UTI resolved last week, but sx continued. Pt states normally gets percocets or morphine for pain but [facility] has only given tylenol, flexeril, and lidocaine patch without improvement. Last tylenol and flexeril 4hrs ago, current lidocaine patch on suprapubic area. Pt states last percocet days ago, but morphine given while here last 2 days with improvement in pain. Denies new leg swelling or tenderness, but endorses L medial calf pain overlying tiny ball x1.5 years told due to "venous reflux" and had vascular surgery approx 1yr ago, but it returned. Multiple unknown abdominal surgeries, last 12/2018. Denies hx CAD, Fhx CAD, recent travel, recent surgeries, sick contacts, hemoptysis, leg swelling, estrogen or hormone use, recent trauma, fever, chills, fatigue, headache, dizziness, numbness/tingling, weakness, vision changes, cough, chest pain, palpitations, leg swelling, blood in stool, diarrhea, constipation, nausea, vomiting, dysuria, hematuria, confusion. PCP - Angel Mullen - [facility] - Fe Hurt ROS: Constitutional: Negative for chills, fever, fatigue, diaphoresis. HENT: Negative for sore throat, rhinorrhea, congestion. Eyes: Negative for visual disturbance. Respiratory: Positive for shortness of breath. Negative for cough, and wheezing. Cardiovascular: Negative for chest pain, palpitations, and leg swelling. Gastrointestinal: Positive for abdominal pain. Negative for blood in stool, constipation, diarrhea, nausea, and vomiting. Genitourinary: Positive for dysuria, frequency, urgency, and R flank pain. Negative for vaginal discharge, vaginal bleeding, hematuria. Musculoskeletal: Negative for myalgias, back pain, and neck pain. Skin: Positive for painful bump on L medial calf. Negative for rash. Neurological: Negative for light-headedness, dizziness, vertigo, syncope, weakness, numbness and headaches. Psychiatric/Behavioral: Negative for behavioral problems and confusion. PE: Gen: Alert, NAD, comfortable-appearing. HEENT: PERRL, EOMI, MMM, NCAT. No conjunctival pallor. Sclera are non-icteric. CV: Regular rate and rhythm. No murmurs, rubs, or gallops. PULM: No resp distress. CTAB, no wheezes, rales, or rhonchi. ABD: +suprapubic TTP, soft, ND, no rebound tenderness or guarding, +R CVA tenderness, lidocaine patch on suprapubic region BACK: No TTP of c/t/l-spine. No step-offs or deformities. MSK: No bony deformities. 2+ pulses in all extremities. NEURO: AAOx3. PERRL. No gross CN deficits. Strength and sensation grossly intact throughout. EXTREMITIES: No cyanosis. No clubbing. No edema. No calf tenderness. LLE: 0.5cm diameter tender papule without erythema or warmth or purulence or bleeding on medial L leg PSYCH: Normal mood and thought pattern. SKIN: Warm and dry. Normal capillary refill. No rashes. No jaundice. MDM: 59yo F hx recent admission here for SOB (07/20/19-07/21/19 with CTPE negative, but suboptimal), stage IV ovarian CA with mets to stomach and lung (previously on chemo; does not know name. Follows with Dr. Nikita Kaba, [facility]), polysubstance abuse (crack cocaine, marijuana, cigarettes, alcohol), pulmonary emboli hx (on eliquis), past R VATS s/p failed thoracentesis, esophageal hernia, ?back mass and resection, and LLE venous insufficiency (s/p surgery ~1.5yrs ago) presents from [facility] with new SOB x4 days, and acute on chronic lung and abdominal pain 2/2 CA. Hemodynamically stable, afebrile, suprapubic TTP, R CVA tenderness , lungs CTAB, 0.5cm diameter tender papule without erythema or warmth on medial L leg. Ddx: PE, DVT, chronic pain 2/2 malignancy, SOB 2/2 lung mets, COPD, PNA, metabolic derangement, anemia. Abdominal pain most likely 2/2 malignancy due to chronicity and consistency with chronic pain. Due to urinary sx and flank pain, also consider UTI/pyelo or kidney stone. Low concern for other emergent GI pathology such as pancreatitis, colitis, diverticulitis, or appendicitis due to lack of N/V/F/C/D/C and chronicity of sx, but obtain labs and CTAP. -CBC,CMP,Coags,UA/UC -EKG -CTPE: due to high concern for PE and suboptimal prior study -CTAP w/IV contrast -Pain management -Dispo: pending w/u 07/23/19 00:09 Labs reviewed. No concerning findings. CBCD WBC 6.7 K/mm3 (4.0-10.0) 07/22/19 22:10 RBC 3.16 M/mm3 (3.60-5.2) L 07/22/19 22:10 Hgb 10.6 GM/dL (10.7-15.3) L 07/22/19 22:10 Hct 31.7 % (32.4-45.2) L 07/22/19 22:10 MCV 100.3 fl (80-96) H 07/22/19 22:10 MCHC 33.6 g/dl (32.0-36.0) 07/22/19 22:10 RDW 14.5 % (11.6-15.6) 07/22/19 22:10 Plt Count 390 K/MM3 (134-434) 07/22/19 22:10 MPV 8.3 fl (7.5-11.1) 07/22/19 22:10 CMP Sodium 136 mmol/L (136-145) 07/22/19 22:10 Potassium 4.6 mmol/L (3.5-5.1) 07/22/19 22:10 Chloride 103 mmol/L (98-107) 07/22/19 22:10 Carbon Dioxide 26 mmol/L (21-32) 07/22/19 22:10 Anion Gap 6 MMOL/L (8-16) L 07/22/19 22:10 BUN 21.1 mg/dL (7-18) H 07/22/19 22:10 Creatinine 1.0 mg/dL (0.55-1.3) 07/22/19 22:10 Calcium 8.6 mg/dL (8.5-10.1) 07/22/19 22:10 Total Bilirubin 0.3 mg/dL (0.2-1) 07/22/19 22:10 AST 28 U/L (15-37) 07/22/19 22:10 ALT 53 U/L (13-61) 07/22/19 22:10 Alkaline Phosphatase 172 U/L (45-117) H 07/22/19 22:10 Total Protein 7.4 g/dl (6.4-8.2) 07/22/19 22:10 Albumin 3.5 g/dl (3.4-5.0) 07/22/19 22:10 EKG reviewed: NSR, 85bpm, normal intervals, no TWIs, no ST elevations or depressions 07/23/19 02:05 CTPE and CTAP reviewed. No acute concerning pathology. Large complex pelvic mass lesion w/solid and cystic components compatible with clinic hx of ovarian cancer. Bilateral lateral pelvic LNs and mesenteric nodular density in L mid abdomen, anteriorly measuring 2cm suggestive of metastasis. Further eval is needed. No gross met lesions in lever or bone. Small infraumbilical paramedian fat-containing hernia. Suboptimal/nondiagnostic exam to r/o PE; however, no gross addle embolus in main PA. Large aortopulmonary window LN. Mild atelectatic changes in L lung base w/o e/o PTX or pleural effusion b/l. Will d/c back to [facility] with PCP f/u. Return precautions given. Pt understands all dc instructions and all questions were answered. Discharge - Discharge Information Problems reviewed: Yes Clinical Impression/Diagnosis: SOB (shortness of breath) Condition: Stable Disposition: HOME - Admission No - Follow up/Referral - Patient Discharge Instructions Additional Instructions: Good luck with your recovery at [facility]! Follow your doctor's instructions at detox. Take Tylenol as written on the package as needed for pain. Follow up with your Pain doctor for further management of your pain. Return to the Emergency Department for any new or worsening symptoms including inability to keep down liquids, chest pain, or difficulty breathing. - Post Discharge Activity
[2019-07-22 21:59] VITALS: BMI 32.5
[2019-07-22 22:24] LABS: BASO % 0.7 % (0-2.0); EOS % 2.3 % (0-4.5); HEMATOCRIT 31.7 % (32.4-45.2); HEMOGLOBIN 10.6 GM/dL (10.7-15.3); LYMPH % 26.2 % (8-40); MCH 33.7 pg (25.7-33.7); MCHC 33.6 g/dl (32.0-36.0); MEAN CELL VOLUME 100.3 fl (80-96); MEAN PLT VOLUME 8.3 fl (7.5-11.1); MONO % 9.6 % (3.8-10.2); NEUT % 61.2 % (42.8-82.8); PLATELET COUNT 390 K/MM3 (134-434); RBC 3.16 M/mm3 (3.60-5.2); RDW 14.5 % (11.6-15.6); WHITE BLOOD COUNT 6.7 K/mm3 (4.0-10.0)
[2019-07-22 22:31] LABS: INR 1.01 (0.83-1.09); PROTHROMBIN TIME (PATIENT) 11.9 SEC (9.7-13.0)
[2019-07-22] MEDS ORDERED: morphine CARPU-JECT 4 MG/1 ML DISP.SYRIN IVPUSH ONE (22:44)
[2019-07-22] MEDS ORDERED: ACETAMINOPHEN 1000 MG/100 ML VIAL (NON FORMULARY) IVPB ONE (22:44)
[2019-07-22] MEDS ORDERED: MORPHINE SULFATE 2 MG/ML VIAL ONE (22:50)
[2019-07-22] MEDS ORDERED: ACETAMINOPHEN INJECTION 100 ML IVPB ONE (22:50)
[2019-07-22 22:54] LABS: ALBUMIN 3.5 g/dl (3.4-5.0); BILIRUBIN,TOTAL 0.3 mg/dL (0.2-1); BLOOD UREA NITROGEN 21.1 mg/dL (7-18); CALCIUM 8.6 mg/dL (8.5-10.1); POTASSIUM 4.6 mmol/L (3.5-5.1); TOT PROT 7.4 g/dl (6.4-8.2)
--- NOTE | 2019-07-22 23:00 | PDOC ---
Documentation entered by Rashi Wilson SCRIBE, acting as scribe for Ralf Nunes MD. Ralf Nunes MD: This documentation has been prepared by the Steve avalos Daniel, SCRIBE, under my direction and personally reviewed by me in its entirety. I confirm that the documentation accurately reflects all work, treatment, procedures, and medical decision making performed by me. Attending Attestation - Resident Resident Name: Joanie Evangelista - ED Attending Attestation I have performed the following: I have examined & evaluated the patient, The case was reviewed & discussed with the resident, I agree w/resident's findings & plan, Exceptions are as noted - HPI HPI: 07/22/19 22:09 The patient is a 59 year old female with a past medical history of stage 4 ovarian cancer which metastasized to her stomach and lungs, prior PE (eliquis), and polysubstance abuse (crack, marijuana, alcohol) here today for evaluation of acute on chronic right lung and abdominal pain and shortness of breath. The patient reports that her right lung pain and abdominal pain began in 01/04 and have been intermittent. She states that her shortness of breath began 4 days ago and had a CT scan 2 days ago which was suboptimal but showed no PE. She also notes dysuria and urinary urgency. Patient denies headache, lightheadedness. Denies fever, chills. Denies chest pain. Denies nausea, vomiting, diarrhea. Allergies: NKA - Physicial Exam PE: 07/22/19 22:59 Vitals: Triage Vital signs reviewed General Appearance: No acute distress, well nourished well developed, Cardiac: Regular rate and rhythym, no murmurs, no rubs, no gallops, Lungs: Clear to auscultation bilateral, good air movement bilaterally, Abdomen: Soft, non distended, normal bowel sounds, non tender to palpation Psych: Normal mood, normal affect - Medical Decision Making 07/22/19 22:59 Sent to ED for rule out PE cancer patient high risk CTA r/o PE ordered 07/23/19 01:38 Dr. De La Vega to follow up CT's, US, and dispo
[2019-07-22 23:11] LABS: EPI CELLS 0.9 /HPF (0-5/HPF); HYALINE CASTS 0 /lpf (0-8); PH,URINE 6.5 (5.0-8.0); URINE APPEARANCE CLEAR; URINE BACTERIA 8.6 /hpf (NEGATIVE); URINE BILIRUBIN NEGATIVE (NEGATIVE); URINE COLOR YELLOW; URINE GLUCOSE (UA) NEGATIVE (NEGATIVE); URINE KETONE NEGATIVE (NEGATIVE); URINE LEUK ESTERASE 1+ (NEGATIVE); URINE NITRITE NEGATIVE (NEGATIVE); URINE PROTEIN NEGATIVE (NEGATIVE); URINE RBC 1 /hpf (0-4); URINE UROBILINOGEN 0.2 mg/dL (0.2-1.0); URINE WBC 7 /hpf (0-5)
[2019-07-22 23:30] LABS: COCAINE, UR NEGATIVE ng/ml (CUTOFF=300); METHADONE, UR NEGATIVE ng/ml (CUTOFF=300); OPIATES, URI NEGATIVE ng/ml (CUTOFF=300); PHENCYCLIDINE,URINE NEGATIVE ng/ml (CUTOFF=25); URINE AMPHETAMINES NEGATIVE ng/ml (CUTOFF=500); URINE BARBITURATES NEGATIVE ng/ml (CUTOFF=200); URINE BENZODIAZEPINES NEGATIVE ng/ml (CUTOFF=200)
[2019-07-23 03:43] VITALS: BP 100/70; PULSE 83; TEMP 97.5
--- NOTE | 2019-07-23 17:02 | EKG ---
Test Reason : Blood Pressure : / mmHG Vent. Rate : 085 BPM Atrial Rate : 085 BPM P-R Int : 158 ms QRS Dur : 076 ms QT Int : 394 ms P-R-T Axes : 058 015 049 degrees QTc Int : 468 ms NORMAL SINUS RHYTHM NORMAL ECG WHEN COMPARED WITH ECG OF 20-JUL-2019 10:33, NO SIGNIFICANT CHANGE WAS FOUND Confirmed by LIANG BLANDON MD ([id number]) on 07/23/2019 5:02:00 PM Referred By: Confirmed By:LIANG BLANDON MD
== END 2019-07-23 02:35 | disposition home or self-care (01) ==
LOC: JER 21:13
PROC: 3E033NZ Introduction of Analgesics, Hypnotics, Sedatives into Peripheral Vein, Percutaneous Approach (ICD-10-PCS; principal; 2019-07-22)
PROC: 3E033NZ Introduction of Analgesics, Hypnotics, Sedatives into Peripheral Vein, Percutaneous Approach (ICD-10-PCS; 2019-07-22)
DX: R06.02 Shortness of breath (principal); G89.3 Neoplasm related pain (acute) (chronic); C56.9 Malignant neoplasm of unspecified ovary; C78.01 Secondary malignant neoplasm of right lung; C78.89 Secondary malignant neoplasm of other digestive organs; F10.21 Alcohol dependence, in remission; Z86.711 Personal history of pulmonary embolism; Z79.01 Long term (current) use of anticoagulants; F14.20 Cocaine dependence, uncomplicated; F12.20 Cannabis dependence, uncomplicated; F17.210 Nicotine dependence, cigarettes, uncomplicated
CPT/HCPCS: 36415; 71275-TC; 74177-TC; 80053; 80307; 81003; 85025; 85610; 85730; 87086; 93005; 93010; 93971-TC; 96374; 96375; 99283-25; J0131; Q9967